=== PATIENT | male | born 1940 | race Caucasian/White ===

== ENCOUNTER 2018-02-17 17:28 | Inpatient (IN) | payer OTHER ==
[~2018-02-17] VITALS: Ht 172.7 cm; Wt 107.9 kg
--- NOTE | ~2018-02-17 | EKG ---
[address] [place] [address] ELECTROCARDIOGRAM REPORT Name: SANDRA KAY Room #: 217-P ADM IN M.R.#: [id number] Admission: 02/17/18 Attend Phys: Ricki Soto MD, Discharge: Date of : 38 Report #: [id number] THIS REPORT FOR: //name// [facility] ED Test Date: 2018-02-17 Test Time: 17:39:16 Pat Name: SANDRA KAY Department: Room: 217 Gender: M Radiation Therapy Technologist: NATACHA : 1940 Requested By: Jack Cage Order Number: [id number] MD: Radu Rendon Measurements Intervals [place] Rate: 115 P: WI: QRS: -41 QRSD: 108 T: 123 QT: 331 QTc: 458 Interpretive Statements Atrial fibrillation Inferior infarct, old Anterior infarct, old Compared to ECG 02/20/2013 07:37:45 Sinus rhythm no longer present Electronically Signed On 02-18-2018 9:48:55 CDT by Radu Rendon [email or web address] <ELECTRONICALLY SIGNED> By: Radu Rendon MD, [facility] 02/18/18 0948 1739 1739 Radu Rendon MD, [facility] /EPI
--- NOTE | ~2018-02-17 | D ---
[facility] [place] [address] [place] [address] DISCHARGE SUMMARY Name: SANDRA KAY Room #: 217-P [facility] IN M.R.#: [id number] Admission: 02/17/18 Attend Phys: Ricki Soto MD, Discharge: 02/20/18 Date of : 39 Report #: [id number] THIS REPORT FOR: //name// CC: Sam Ram MD DATE OF SERVICE: 02/20/2018 HOSPITAL COURSE: The patient is a 77-year-old male who was admitted with abdominal and chest pain. Subsequently, found to have what we perceived to be diverticulitis, colitis. He was borderline hypotensive, impending sepsis when he initially arrived. Seen by Infectious Disease and 3 different antibiotics were initiated on admission to the CCU, with negative cardiac enzymes. He is markedly improved with his antibiotic care. Stool culture and blood cultures were positive for gram-negative rods. Sensitivities are still pending this morning, but they should be obtained and then direct oral antibiotics. He will be discharged on acyclovir 400, multivitamins, glucosamine, vitamin D3, metoprolol 50 mg a day, irbesartan 75 mg a day, ____ 2 capsules b.i.d., simvastatin 40 and Eliquis 5 mg b.i.d. The antibiotics orally are pending the sensitivities, and I will add these on to an addendum. He has been treated with piperacillin or Zosyn. He has been on IV Zosyn and had received other antibiotics initially at the Emergency Room. DISCHARGE DIAGNOSES: 1. Diverticulitis/colitis, sepsis with gram-negative rods, positive blood cultures/bacteremia. 2. Coronary artery disease with prior limited anterior apical infarct clot without stent. 3. Mitral valve repair. 4. Hypertension. 5. Hypercholesterolemia. Followup is scheduled with myself and with Dr. Papo Marx, Infectious Disease. Thank you for asking to assist in the care of this patient. By: 0839 0911 Ricki Soto MD, FACC /nt
--- NOTE | ~2018-02-17 | H ---
[facility] [place] [address] [place] [address] HISTORY AND PHYSICAL Name: SANDRA KAY Room #: 217-P ADM IN M.R.#: [id number] Admission: 02/17/18 Attend Phys: Ricki Soto MD, Discharge: Date of : 39 Report #: [id number] THIS REPORT FOR: //name// CC: Sam Ram MD DATE OF SERVICE: 02/17/2018 HISTORY OF PRESENT ILLNESS: The patient is a 77-year-old male who is well known to myself. He has been stable from a cardiovascular perspective, has a history of permanent atrial fibrillation and a mitral valve ring repair in 2012 and mild coronary disease 2012 on a catheterization. In May 2016, he had an intravascular ultrasound of his IVC and external iliac and common iliac veins. No stents were placed. He has been anticoagulated with a novel agent, Eliquis 5 b.i.d., he also takes acyclovir, glucosamine, Tresiba, irbesartan 150 or 75 mg takes half of a pill daily, metoprolol 50, MultiVites, Zocor 40, vitamin D3. There was angioplasty and catheter removed of a clot at the distal LAD. This did not result in the stent. Mild circ and RCA disease. Dominant circumflex artery, mild inferior apical hypokinesis, but this is nearly resolved that was in February 2013. The patient has had progressive weakness, some swelling, chills and dyspnea. An episode last night, which resolved and then did not feel well all day and then had rigors and chilling tonight. Subsequently, brought to the Emergency Room, hemodynamically stable, mildly hypotensive with a mild lactate elevation, no significant white count, creatinine was 1.4, lactate was 2.7. H and H were 13 and 39. PAST MEDICAL AND SURGICAL HISTORY: Positive for that coronary artery disease with that spontaneous clot and extraction without stent, mitral valve ring repair, venous venogram, hypertension, hypercholesterolemia, prostate cancer, prostatectomy, TIA without recurrence, and the permanent atrial fibrillation, hernia repair in addition. 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 He had 3 sons alive and well. Moderate alcohol. No tobacco. FAMILY HISTORY: Mother had hypercholesterolemia and had an uncle who had a premature coronary artery disease. ALLERGIES: No known drug allergies. REVIEW OF SYSTEMS: Negative except for some insufficiency. PHYSICAL EXAMINATION: [facility] [address] [place] [address] HISTORY AND PHYSICAL Name: SANDRA KAY Room #: 217-P ADM IN M.R.#: [id number] Admission: 02/17/18 Attend Phys: Ricki Soto MD, Discharge: Date of : 39 Report #: [id number] GENERAL: He is alert. He is fairly comfortable right now. No further chilling. VITAL SIGNS: His initial temperature was 102, pulse is currently in the 60s-70s, was borderline tachycardic when he arrived, blood pressure 104/50. HEENT: Eyes reveal xanthelasmas. Pharynx is clear. NECK: Shows preserved upstrokes without JVD or bruits. LUNGS: Shows prolonged expiratory phase, diminished in the bases, left greater than right. Few crackles. CARDIOVASCULAR: Irregular, irregular, S1, S2. ABDOMEN: Soft. No HSM or abdominal bruit. EXTREMITIES: Reveal trace edema. Distal pulses diminished, but intact. NEUROLOGIC: Nonfocal. SKIN: Warm and dry without xanthoma or ulcer. There are some venous stasis insufficiency and dermatitis noted in the lower extremities. MUSCULOSKELETAL: Generalized arthritic changes. ASSESSMENT: 1. Apparent sepsis with borderline hypotension and lactate elevation (unclear etiology). 2. Coronary artery disease with remote left anterior descending clot, spontaneous clot formation with extraction. 3. Mild ischemic cardiomyopathy. 4. Mitral valve ring repair. 5. Permanent atrial fibrillation on anticoagulation with a novel agent. 6. History of prostatectomy for prostate cancer. 7. Hypercholesterolemia. RECOMMENDATIONS AND PLAN: Infectious Disease involved, IV antibiotics have been initiated. I am holding on blood pressure and I will continue with metoprolol 50 for rate, holding NIGEL, ARB and statin at this time. We will continue anticoagulation with the Eliquis. We are awaiting UA, blood and urine cultures, sputum culture, repeat chest x-ray. The patient in CCU and hemodynamically stable. Thank you for asking me to assist in the care of this patient. By: [id number] Ricki Soto MD, FACC /nt
--- NOTE | ~2018-02-17 | 2DMMODE ---
[facility] [address] [place] [address] 2 D/M-MODE ECHOCARDIOGRAM Name: SANDRA KAY Room #: 217-P ADM IN M.R.#: [id number] Admission: 02/17/18 Attend Phys: Ricki Soto, Discharge: Date of : 38 Date of Service: 02/19/18 1514 Report #: [id number] THIS REPORT FOR: //name// APPROVED REPORT Study performed: 02/19/2018 14:00:27 EXAM: Comprehensive 2D, Doppler, and color-flow Echocardiogram Patient Location: In-Patient Room #: 217 Status: routine BSA: 2.18 HR: 84 bpm BP: 103/69 mmHg Rhythm: Atrial Fibrillation Other Information Study Quality: Good Indications AFIB, HTN. Hx:Afib, CAD, MV repair, TIA. 2D Dimensions RVDd: 47.09 mm LVEF(%): 29.99 (>50%) IVSd: 10.80 (7-11mm) LVOT Diam: 21.63 (18-24mm) LVDd: 45.86 mm PWd: 9.86 (7-11mm) Ascending Ao: 33.10 (22-36mm) LVDs: 39.43 (25-40mm) Aortic Root: 37.12 mm Goetz's LVEF: 29.99 % Volumes Left Atrial Volume (Systole) Single Plane 4CH: 118.66 mL Single Plane 2CH: 110.20 mL LA ESV Index: 56.00 mL/m2 Aortic Valve AoV Peak Zeb.: 1.40 m/s AO Peak Gr.: 8.04 mmHg LVOT Max P.06 mmHg LVOT Max V: 0.87 m/s GILBERT Vmax: 2.29 cm2 Mitral Valve MV Decel. Time: 296.99 ms MV E Max Zeb.: 1.98 m/s [facility] [place] [address] 2 D/M-MODE ECHOCARDIOGRAM Name: SANDRA KAY TAMARA Room #: 217-P [facility] IN M.R.#: [id number] Admission: 02/17/18 Attend Phys: Ricki Soto, Discharge: Date of : 38 Date of Service: 02/19/18 1514 Report #: [id number] Pulmonary Valve PV Peak Zeb.: 0.98 m/s PV Peak Gr.: 3.88 mmHg Tricuspid Valve TR Peak Zeb.: 3.10 m/s TR Peak Gr.: 38.61 mmHg Left Ventricle The left ventricle is normal size. There is normal left ventricular wall thickness. Left ventricular systolic function is moderately decreased. LVEF is 35-40%. This study is not technically sufficient to allow evaluation of the LV diastolic function due to atrial fibrillation. Right Ventricle Right ventricle is dilated. Right ventricle is mildly hypokinetic. Atria Left atrium is severely dilated. Right atrium is moderately dilated. Aortic Valve Aortic valve is calcified. Trace aortic regurgitation. There is no aortic valvular stenosis. Mitral Valve History of mitral valve repair. Mild to moderate mitral stenosis with a mean pressure gradient of 6mmHg. Eccentric regurgitation jet, probably mild to moderate. Tricuspid Valve The tricuspid valve is normal in structure. Mild to moderate tricuspid regurgitation. Estimated PAP is 40mmHg plus the right atrial pressure. Pulmonic Valve The pulmonary valve is normal in structure. Trace pulmonic regurgitation. Great Vessels The aortic root is normal in size. The ascending aorta is normal in size. IVC is not well visualized. Pericardium [facility] [address] [place] [address] 2 D/M-MODE ECHOCARDIOGRAM Name: SANDRA KAY Room #: 217-P ADM IN M.R.#: [id number] Admission: 02/17/18 Attend Phys: Ricki Soto, Discharge: Date of : 38 Date of Service: 02/19/18 1514 Report #: [id number] There is no pericardial effusion. <Conclusion> The left ventricle is normal size. Left ventricular systolic function is moderately decreased. LVEF is 35-40%. This study is not technically sufficient to allow evaluation of the LV diastolic function due to atrial fibrillation. Right ventricle is dilated. Right ventricle is mildly hypokinetic. Left atrium is severely dilated. Right atrium is moderately dilated. Aortic valve is calcified. There is no aortic valvular stenosis. History of mitral valve repair. Mild to moderate mitral stenosis with a mean pressure gradient of 6mmHg. Eccentric regurgitation jet, probably mild to moderate. Mild to moderate tricuspid regurgitation. Estimated PAP is 40mmHg plus the right atrial pressure. The aortic root is normal in size. There is no pericardial effusion. <ELECTRONICALLY SIGNED> By: Ricki Soto MD, FACC 02/19/18 1514 1514 151 Ricki Soto MD, FACC /INF
--- NOTE | ~2018-02-17 | HC ---
[facility] [place] [address] [place] [address] CONSULTATION Name: SANDRA KAY Room #: 217-P ADM IN M.R.#: [id number] Admission: 02/17/18 Attend Phys: Ricki Soto MD, Discharge: Date of : 39 Report #: [id number] THIS REPORT FOR: //name// CC: Sam Ram MD DATE OF SERVICE: 02/18/2018 ATTENDING PHYSICIAN: Ricki Soto MD REASON FOR CONSULTATION: Fever. HISTORY OF PRESENT ILLNESS: The patient is a 77-year-old white man unwell since Saturday when he developed shaking chills and profound fatigue. Evaluated in the Emergency Room and diagnosed to be septic. He is admitted. I discussed with Emergency Room physician, recommended the patient receive Zosyn, Levaquin and vancomycin. Today, the patient is feeling better. His blood cultures showed gram-negative rods. His urinalysis is completely normal, but he reminds me he had previous episode of colonic diverticulitis treated by Dr. Ram with Flagyl and another antibiotic. The patient is feeling some better today. PAST MEDICAL HISTORY: Coronary artery disease, congestive heart failure. History of mitral valve ring repair. Hypertension Dyslipidemia. Prostate cancer. TIA. Permanent atrial fibrillation. Hernia repair. SOCIAL HISTORY: . 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 Three sons. Moderate alcohol. No tobacco. DRUG ALLERGIES: None listed. MEDICATIONS: The patient received vancomycin intravenously, Zosyn 4.5 grams IV single dose and Levaquin 750 mg IV single dose. He is also on treatment with metoprolol, acyclovir, apixaban and Lasix. REVIEW OF SYSTEMS: The patient specifically denies any abdominal pain, nausea, vomiting, diarrhea, genitourinary symptoms. He has chronic breathlessness and edema of lower extremities on account of congestive heart failure. PHYSICAL EXAMINATION: GENERAL: A well-developed, not toxic looking man. VITAL SIGNS: Temperature maximum 102.9, pulse 133 down to 79, respirations 28 down to 18, BP is 92/58 earlier today and 125/67 now. O2 saturation is 98% on nasal cannula 2 liters per minute. HEENMT: Head normocephalic, atraumatic. Pupils reactive. Mouth, repaired dental caries. [address] [address] CONSULTATION Name: SANDRA KAY Room #: 217-P ADM IN M.R.#: [id number] Admission: 02/17/18 Attend Phys: Ricki Soto MD, Discharge: Date of : 39 Report #: [id number] NECK: Supple, no thyromegaly. LUNGS: Crackles, particularly right lung base and decreased breath sounds on left. HEART: S1, S2. No gallop or murmur. ABDOMEN: Soft, no masses or megaly, no abnormal tenderness. GENITALIA AND RECTAL: Deferred. EXTREMITIES: Revealed trace pitting pretibial edema. LABORATORY DATA: Sodium 137, potassium 4.5, chloride 105, CO2 22, BUN 27, creatinine 1.4, glucose 130, calcium elevated at 10.2 mg/dL, albumin low at 3.3 g/dL, lactic acid was elevated yesterday 2.7 and repeat 11.3. NT-proBNP elevated at 3183. The CBC on admission revealed a WBC 7300, hemoglobin 13.6 g/dL, platelets 154,000. The white blood cell count differential revealed 94% segmented neutrophils. Repeat CBC today revealed white blood cell count has gone up to 13,200, hemoglobin 12.3 g/dL and platelets have dropped to 137,000. The urinalysis is completely negative. MICROBIOLOGY DATA: The rapid influenza A and B test negative. One out of two blood cultures revealed gram-negative rods. Identification and sensitivity is pending. ABGs ordered last night revealed pH , pCO2 decreased 29.8, pO2 141, bicarbonate 18.1. Lactate normal. These set of gases on oxygen supplementation 6 liters nasal cannula. RADIOLOGY EVALUATION: Chest x-ray revealed cardiomegaly, left-sided pleural effusion and some basilar infiltrates on right. ASSESSMENT: 1. Gram-negative jesica bacteremia, undetermined source. 2. History of colonic diverticulosis and recurrent diverticulitis. 3. Status post mitral valve repair and history of coronary artery disease, congestive heart failure and chronic atrial fibrillation, on oral anticoagulation. 4. Hypercalcemia. 5. Mild chronic kidney disease. 6. Hypoalbuminemia. 7. Thrombocytopenia. 8. History of prostate cancer. SUGGESTIONS: Recommend to discontinue Levaquin and vancomycin. Zosyn prolonged intravenous infusion, 3.45 grams IV every [address] scan of abdomen and pelvis. Repeat BMP today. Monitor calcium. [address] [address] CONSULTATION Name: SANDRA KAY Room #: 217-P ADM IN M.R.#: [id number] Admission: 02/17/18 Attend Phys: Ricki Soto MD, Discharge: Date of : 39 Report #: [id number] Soto, thank you for requesting my suggestions. <ELECTRONICALLY SIGNED> By: Papo Marx MD 02/18/18 1219 1012 1201 Papo Marx MD /nt
[~2018-02-17 17:28] MED LIST: ACYCLOVIR 400400 MG PO; ASPIRIN EC81 M1 PO; ASPIRIN325 PO; AVAPRO 150 MG150 MG PO; BENICAR20 MG PO; CAL-CITRATE PL1 EACH PO; CALCIUM CITRAT1 EA15 PO; CALCIUM CITRAT1 EAC9 PO; CVS FISH OIL 11 EAC3; FISH OIL 1,0001 EAC5 PO; GLUCOSAMINE &1 EACH PO; GLUCOSE4 GM; MULTI VITAMIN1 EACH PO; PLAVIX 75 MG TA75 M1 PO; SIMVASTATIN40 MG PO; TOPROL XL25 MG PO; VASCEPA1 GM PO; VERAPAMIL ER120 MG PO; VERAPAMIL SR 1120 M1 PO; VITAMIN D2000 UNIT PO; ZOCOR 20 MG TAB20 M1 PO
[2018-02-17 17:29] VITALS: BP 115/49
[2018-02-17 18:04] LABS: ABSOLUTE NEUTROPHILS 6.8 thou/uL (1.4-8.2); BASOPHILS 0.2 % (0.0-2.0); EOSINOPHILS 0.3 % (0.0-3.0); HEMATOCRIT 39.5 % (42.0-52.0); HEMOGLOBIN 13.6 gm/dL (14.0-18.0); LYMPHOCYTES 4.4 % (24.0-44.0); MCH 32.6 pg (26.0-34.0); MCHC 34.4 g/dL (28.0-37.0); MCV 94.7 fL (80.0-100.0); PLATELET COUNT 154 thou/uL (150-400); POLYS 94.1 % (36.0-66.0); RBC 4.17 mil/uL (4.50-6.00); RDW 13.1 % (10.5-14.5); WBC 7.3 thou/uL (4.0-11.0)
[2018-02-17 18:05] LABS: CALCIUM 10.2 mg/dL (8.5-10.1); CREATININE 1.4 mg/dL (0.7-1.3); POTASSIUM 4.5 mmol/L (3.5-5.1)
[2018-02-17 18:12] LABS: ALBUMIN 3.3 g/dL (3.4-5.0); TOTAL BILIRUBIN 0.9 mg/dL (<0.1-1.0); TOTAL PROTEIN 6.9 g/dL (6.4-8.2)
[2018-02-17 20:15] VITALS: BP 114/55
[2018-02-17 21:12] VITALS: BP 102/43
[2018-02-17] MEDS ORDERED: ELIQUIS5 MG PO (21:59)
[2018-02-17 22:55] LABS: BE(vivo) -5.4 mmol/L (-2 to +3); HCO3 18.1 mmol/L (22.0-26.0); PCO2 29.8 mmHg (35.0-45.0); PO2 141.1 mmHg (80.0-100.0); pH 7.401 (7.360-7.450); sO2 98.8 % (92.0-98.0)
[2018-02-17 23:05] VITALS: BP 92/58
[2018-02-18 00:11] LABS: URINE BILIRUBIN NEGATIVE (Negative); URINE BLOOD NEGATIVE (Negative); URINE CLARITY CLEAR; URINE COLOR YELLOW; URINE GLUCOSE-RANDOM* NEGATIVE (Negative); URINE KETONES TRACE (Negative); URINE LEUKOCYTES NEGATIVE (Negative); URINE NITRITE NEGATIVE (Negative); URINE PROTEIN (DIPSTICK) NEGATIVE (Negative); URINE SPECIFIC GRAVITY 1.025 (1.005-1.035); URINE UROBILINOGEN 0.2 E.U./dl (0.2-1.0)
[2018-02-18 03:41] VITALS: BP 95/59
[2018-02-18 05:07] LABS: HEMATOCRIT 36.1 % (42.0-52.0); HEMOGLOBIN 12.3 gm/dL (14.0-18.0); MCH 32.6 pg (26.0-34.0); MCV 96.1 fL (80.0-100.0); RBC 3.76 mil/uL (4.50-6.00); RDW 12.8 % (10.5-14.5); WBC 13.2 thou/uL (4.0-11.0)
[2018-02-18 07:50] VITALS: BP 125/67
[2018-02-18 10:17] LABS: CALCIUM 9.1 mg/dL (8.5-10.1); CREATININE 1.2 mg/dL (0.7-1.3); MAGNESIUM 1.7 mg/dL (1.8-2.4); POTASSIUM 4.6 mmol/L (3.5-5.1)
[2018-02-18 11:15] VITALS: BP 99/51
[2018-02-18 15:45] VITALS: BP 98/52
[2018-02-18 20:30] VITALS: BP 101/56
[2018-02-19 05:10] VITALS: BP 118/69
[2018-02-19 08:00] VITALS: BP 124/73
[2018-02-19 12:00] VITALS: BP 103/69
[2018-02-19 16:00] VITALS: BP 119/70
[2018-02-19 19:45] VITALS: BP 102/65
[2018-02-20 04:45] VITALS: BP 115/77
[2018-02-20 07:29] VITALS: BP 119/80
[2018-02-20 10:42] VITALS: BP 119/80
[2018-02-20 11:10] VITALS: BP 110/57
[2018-02-20 13:30] VITALS: BP 119/80
[2018-02-21 00:10] LABS: ADENOVIRUS Negative (Negative); INFLUENZA A Negative (Negative); INFLUENZA B Negative (Negative); METAPNEUMOVIRUS Negative (Negative); PARAINFLUENZA 1 Negative (Negative); PARAINFLUENZA 2 Negative (Negative); PARAINFLUENZA 3 Negative (Negative); RHINOVIRUS Negative (Negative); RSV A Negative (Negative); RSV B Negative (Negative)
== END 2018-02-20 13:10 | disposition home or self-care (01) | DRG 871 ==
LOC: ER 17:28 → EROBS 18:37 → 2N 18:37 → ENTRNSPT 02-20 12:45 → EDTRNSPTSTS 02-20 12:52 → 2N 02-20 13:10
PROVIDERS: Emergency Medicine; Internal Medicine Cardiovascular Disease; Internal Medicine Infectious Disease
DX: A41.9 Sepsis, unspecified organism (principal); E43 Unspecified severe protein-calorie malnutrition; I13.0 Hypertensive heart and chronic kidney disease with heart failure and stage 1 through stage 4 chronic kidney disease, or unspecified chronic kidney disease; I25.5 Ischemic cardiomyopathy; I25.10 Atherosclerotic heart disease of native coronary artery without angina pectoris; E78.00 Pure hypercholesterolemia, unspecified; I50.9 Heart failure, unspecified; E78.5 Hyperlipidemia, unspecified; I48.2 Chronic atrial fibrillation; K57.90 Diverticulosis of intestine, part unspecified, without perforation or abscess without bleeding; E83.52 Hypercalcemia; N18.9 Chronic kidney disease, unspecified; D69.6 Thrombocytopenia, unspecified; I95.9 Hypotension, unspecified; Z82.49 Family history of ischemic heart disease and other diseases of the circulatory system; Z85.46 Personal history of malignant neoplasm of prostate; Z86.73 Personal history of transient ischemic attack (TIA), and cerebral infarction without residual deficits; Z79.01 Long term (current) use of anticoagulants; Z79.899 Other long term (current) drug therapy; Z28.21 Immunization not carried out because of patient refusal; Z68.36 Body mass index [BMI] 36.0-36.9, adult
CPT/HCPCS: 10194

== ENCOUNTER 2018-04-24 19:22 | Inpatient (IN) | payer OTHER ==
[~2018-04-24] VITALS: Ht 172.7 cm; Wt 100.1 kg
--- NOTE | ~2018-04-24 | EKG ---
[place] [address] [place] [address] ELECTROCARDIOGRAM REPORT Name: SADNRA KAY Room #: 214-P ADM IN M.R.#: [id number] Admission: 04/24/18 Attend Phys: Ricki Soto MD, Discharge: Date of : 39 Report #: [id number] THIS REPORT FOR: //name// [facility] ED Test Date: 2018-04-24 Test Time: 20:33:10 Pat Name: SANDRA KAY Department: Room: Gender: M Cylinder Batcher[facility] : 1940 Requested By: Jack Cage Order Number: [id number] MD: Radu Rendon Measurements Intervals [place] Rate: 94 P: [place]: QRS: -41 QRSD: 107 T: -12 QT: 365 QTc: 457 Interpretive Statements Atrial fibrillation Poor R wave progression Leftward axis inferior infarct, age indeterminate Compared to ECG 02/17/2018 17:39:16 No significant changes Electronically Signed On 04-25-2018 9:19:43 CDT by Radu Rendon [email or web address] <ELECTRONICALLY SIGNED> By: Radu Rendon MD, [facility] 04/25/18918 32 32 Radu Rendon MD, [facility] /EPI
--- NOTE | ~2018-04-24 | HC ---
[facility] [address] [place] [address] CONSULTATION Name: SANDRA KAY Room #: 214-P DIS IN M.R.#: [id number] Admission: 04/24/18 Attend Phys: Ricki Soto MD, Discharge: 04/27/18 Date of : 39 Report #: [id number] THIS REPORT FOR: //name// <ELECTRONICALLY SIGNED> By: Monico Olmstead MD, FACS 04/29/18812 1338 10 Monico Olmstead MD, FACS /nt
--- NOTE | ~2018-04-24 | HC ---
[facility] [address] [place] [address] CONSULTATION Name: SANDRA KAY Room #: 214-P [facility] IN M.R.#: [id number] Admission: 04/24/18 Attend Phys: Ricki Soto MD, Discharge: Date of : 39 Report #: [id number] THIS REPORT FOR: //name// CC: Sam Soto Papo Francisco J Ram MD DATE OF SERVICE: 04/25/2018 INFECTIOUS DISEASE CONSULTATION ATTENDING PHYSICIAN: Dr. Soto. REASON FOR CONSULTATION: Shaking chills and fevers. HISTORY OF PRESENT ILLNESS: The patient is a 77-year-old white man, recently discharged from [facility] after an acute septic event, consistent of E. coli bacteremia and abdominal pain compatible with acute diverticulitis. The patient was discharged on oral antibiotics. He visited with Dr. Phil Ram the Saturday post-discharge and again, he was given a prescription for Flagyl 500 t.i.d. and Cipro 500 b.i.d. for another 10 days. The patient did well until the date of admission. On the morning of the day of admission, the patient wakes up and some chores at home. At around 03:00 or 04:00 p.m., developed severe shaking chills and presented to the Emergency Room. It is said to have temperature graduated to 102.3 at home and 103 in the ER; no documentation for that. The patient underwent CT scan of the abdomen and pelvis that revealed extensive colonic diverticulosis. No obvious diverticulitis. The other finding was left groin possible adenopathy. The patient is given Zosyn. Today, the patient is feeling significantly better. He has never seen surgeon and we will make sure we get a surgical consultation at this time. PAST MEDICAL HISTORY: Coronary artery disease. Dyslipidemia. Hypertension. Mitral valve ring repair in 2006. TIA. Hernia repair. Previous myocardial infarction. Prostate cancer, status post prostatectomy. Chronic atrial fibrillation. MEDICATIONS: At home include acyclovir, calcium citrate, multivitamin, glucosamine chondroitin, metoprolol, irbesartan, simvastatin, apixaban, icosapent ethyl or Vascepa 2 capsules b.i.d. and cholecalciferol 2000 units daily. Here at the hospital, the patient is on Zosyn 3.375 grams IV every 6 hours. SOCIAL HISTORY: See H and P, old records. FAMILY HISTORY: See H and P, old records. [facility] [address] [place] [address] CONSULTATION Name: SANDRA KAY Room #: 214-P [facility] IN M.R.#: [id number] Admission: 04/24/18 Attend Phys: Ricki Soto MD, Discharge: Date of : 39 Report #: [id number] REVIEW OF SYSTEMS: As above and essentially noncontributory. I have mentioned to him he had chronic crackles on the right base. He has bilateral trace pretibial edema and he tells me this has been present all the time. PHYSICAL EXAMINATION: GENERAL: A well-developed, not-toxic looking man. VITAL SIGNS: Temperature 98.7 on the date of admission, pulse 94, respirations 14, BP 101/68 and O2 saturation 96% on room air. HEENT: Within range. NECK: Supple. No thyromegaly or lymphadenopathy. LYMPH NODES: There are no palpable supraclavicular, axillary or inguinal adenopathy. LUNGS: Crackles at right base more so than the left. HEART: S1, S2. No gallop. ABDOMEN: Soft, not tender. No palpable masses or megaly. EXTREMITIES: Trace pretibial edema. NEUROLOGIC: Grossly within normal limits. LABORATORY DATA: Reveals BUN 21, creatinine 1.3 and glucose 149. Albumin 3.7 g/dL. The C-reactive protein is 15.5. WBC on admission 14,800, hemoglobin 13.9 g/dL and platelets 184,000. Sed rate pending and procalcitonin pending. Urinalysis negative. RADIOLOGY EVALUATION: CT scan abdomen and pelvis revealed extensive colonic diverticula as well as a 2-cm nodule anterior to the right common femoral artery and vein, just lateral to the origin of the inferior epigastric artery. ASSESSMENT: 1. Fevers and chills in a patient with history of extensive colonic diverticula. 2. Possible chronic obstructive pulmonary disease. 3. Coronary artery disease and previous history of mitral valve ring repair. 4. Status post prostatectomy for prostate cancer. 5. Dyslipidemia. 6. Right groin questionable lymphadenopathy. SUGGESTIONS: Recommend obtaining ESR, CRP and procalcitonin. Zosyn 3.375 grams IV every [address] Monico Olmstead for possible segmental colonic resection once the acute event resolves. [address] [address] CONSULTATION Name: SANDRA KAY Room #: 214-P ADM IN M.R.#: [id number] Admission: 04/24/18 Attend Phys: Ricki Soto MD, Discharge: Date of : 39 Report #: [id number] Soto, thank you for requesting my suggestions in the care of your patient. <ELECTRONICALLY SIGNED> By: Papo Marx MD 04/26/18 0706 1004 1325 Papo Marx MD /nt
--- NOTE | ~2018-04-24 | HC ---
[facility] [address] [place] [address] CONSULTATION Name: SANDRA KAY Room #: 214-P [facility] IN M.R.#: [id number] Admission: 04/24/18 Attend Phys: Ricki Soto MD, Discharge: 04/27/18 Date of : 38 Report #: [id number] THIS REPORT FOR: //name// CC: Sam Soto [facility] DATE OF SERVICE: 04/25/2018 GENERAL SURGERY CONSULTATION REFERRING PROVIDER: Ricki Soto MD [facility] REASON FOR CONSULT: Abdominal pain. HISTORY OF PRESENT ILLNESS: The patient is a 77-year-old male who was recently discharged after sustaining sepsis with E. coli bacteremia and acute diverticulitis. The patient was sent home on oral antibiotics; however, was doing well at home after discharge until yesterday when he developed shaking chills with fevers to 103 degrees. The patient underwent repeat workup with a CT scan of the abdomen and pelvis, which revealed diverticulosis with no obvious ongoing diverticulitis. He was given Zosyn and admitted and I am asked to evaluate from a surgical standpoint. PAST MEDICAL HISTORY: Coronary artery disease, dyslipidemia, hypertension, mitral valve repair, TIA, prior hernia repair, prior SD, prostate cancer, status post prostatectomy, chronic atrial fibrillation. HOME MEDICATIONS: Include acyclovir, calcium citrate, multivitamin, glucosamine chondroitin, metoprolol, irbesartan, simvastatin, Eliquis, Vascepa, cholecalciferol, and has been initiated on Zosyn while hospitalized here. ALLERGIES: No known drug allergies. FAMILY HISTORY: Reviewed and noncontributory. SOCIAL HISTORY: The patient does not use tobacco or illicit drugs. He does drink 6 ounces of red wine weekly. REVIEW OF SYSTEMS: GENERAL: The patient denies any nocturnal fevers or chills prior. HEENT: No change in vision or change in hearing. NECK: No swelling or difficulty swallowing. HEART: No chest pain or palpitations. LUNGS: No cough or shortness of breath. ABDOMEN: No nausea, no vomiting. [facility] [address] [place] [address] CONSULTATION Name: SANDRA KAY Room #: 214-P [facility] IN M.R.#: [id number] Admission: 04/24/18 Attend Phys: Ricki Soto MD, Discharge: 04/27/18 Date of : 38 Report #: [id number] GENITOURINARY: No dysuria or hematuria. ENDOCRINE: No polyuria or polydipsia. HEMATOLOGIC: No history of bleeding or easy bruising. EXTREMITIES: No history of weakness or limited range of motion. NEUROLOGIC: No history of syncope or near syncopal episodes. SKIN AND INTEGUMENT: No history of abnormal lesions or moles. PSYCHIATRIC: No history of anxiety or depression. PHYSICAL EXAMINATION: VITAL SIGNS: Temperature 37.2, pulse 89, respirations 20, blood pressure 120/68. GENERAL: Alert, in no acute distress. HEENT: Normocephalic, atraumatic. Pupils equal, round, reactive to light. NECK: Supple, without lymphadenopathy. Trachea midline. HEART: Irregularly irregular. LUNGS: Decreased breath sounds at the bases bilaterally, otherwise clear to auscultation throughout the rest of his lung painter. ABDOMEN: Soft, nontender, nondistended. GENITOURINARY: Normal external male genitalia. EXTREMITIES: No clubbing, cyanosis or edema. NEUROLOGIC: Cranial nerves 2-12 are grossly intact. PSYCHIATRIC: Normal mood and affect. SKIN AND INTEGUMENT: No abnormal lesions or moles. LABORATORY AND X-RAY DATA: CBC shows white blood cell count of 14.5 thousand, hemoglobin 13.5, platelets 170,000. Creatinine 1.2. CRP minimally elevated at 15. Sed rate normal at 10. Procalcitonin is normal at 0.30. Lactic acid normal at 0.7. ASSESSMENT AND PLAN: A 77-year-old male, with multiple medical problems including atrial fibrillation, coronary artery disease, status post myocardial infarction, hypercholesterolemia and hypertension, who has had a prior hernia repair in the past and was recently admitted for bacteremia secondary to acute diverticulitis. The patient has been seen by Dr. Marx of the Infectious Disease Service and he has the patient on appropriate antibiotic therapy even in light of absent acute infectious process seen on CT scan. The patient does have a low level leukocytosis and recently resolved his acute infectious episode, so this is completely appropriate and I will defer antibiotic choices to Dr. Marx at this time. Currently, the patient has no abdominal pain and as such, I would recommend continuation of conservative care with slow advancement in his oral intake coupled with his antibiotic therapy and the patient will necessitate colonoscopy as an outpatient with plans to proceed for definitive surgical management in the form of a sigmoid colectomy thereafter. All the above was discussed with the patient in detail and he agrees to proceed as outlined. [facility] [address] [place] [address] CONSULTATION Name: SANDRA KAY Room #: 600-P DIS IN M.R.#: [id number] Admission: 04/24/18 Attend Phys: Ricki Soto MD, Discharge: 04/27/18 Date of : 39 Report #: [id number] I sincerely appreciate this consult and we will follow closely and leave any further recommendations in the patient's chart as appropriate. <ELECTRONICALLY SIGNED> By: Monico Olmstead MD, FACS 04/29/18 0813 [id number] Monico Olmstead MD, FACS /nt
--- NOTE | ~2018-04-24 | D ---
[facility] [place] [place] [address] DISCHARGE SUMMARY Name: SANDRA KAY Room #: 214-P [facility] IN M.R.#: [id number] Admission: 04/24/18 Attend Phys: Ricki Soto MD, Discharge: 04/27/18 Date of : 39 Report #: [id number] THIS REPORT FOR: //name// CC: Sam Ram MD [facility] COURSE: The patient is a 77-year-old male. He was admitted with fever, rigors, and chills. This was a similar admission, 2 months prior, was found to have extensive diverticulosis. Had been stable, had been following dietary recommendations. He was subsequently treated with IV antibiotics, seen by Infectious Disease and General Surgery. He is up and ambulating, doing well. No further discomfort. No fever. His procalcitonin was not elevated and sed rate and CRP were fairly normal. He has a history of mild ischemic cardiomyopathy at 40% range, biatrial enlargement with [id number] MR and mitral stenosis. Mitral valve ring repair, permanent atrial fibrillation. He will be discharged home on his medications. He is restarted on his anticoagulation on the novel agent, Eliquis 5 mg b.i.d. and will be discharged on Cipro and Flagyl per Infectious Disease orally. Dr. Olmstead has seen him from General Surgery. The plan will be to obtain a colonoscopy and then probable bowel resection due to this recurrent nature of this disease. The patient is in full agreement with this. He has been quite sick on both of these admissions, initially and has little warning until he develops with high fever and shaking chills. DISCHARGE DIAGNOSES: 1. Diverticulitis with underlying extensive diverticulosis. 2. History of mitral valve disease with mitral valve ring repair and svnz-ey-zhiiiodl mitral regurgitation and mitral stenosis. 3. Mild idiopathic and valvular ischemic cardiomyopathy. 4. History of coronary artery disease. 5. Hypertension. 6. Hypercholesterolemia. To clarify his coronary artery disease, there was an old limited apical infarct that was a clot without a stent placement, this was a couple of years prior. He will also restart his statin and acyclovir at 400 mg a day. He will call with any issues. He will follow up with General Surgery regarding colonoscopy and [address] [address] DISCHARGE SUMMARY Name: SANDRA KAY Room #: 214-P [facility] IN M.R.#: [id number] Admission: 04/24/18 Attend Phys: Ricki Soto MD, Discharge: 04/27/18 Date of : 39 Report #: [id number] then possible further recommendations regarding a bowel resection for this extensive diverticulosis. <ELECTRONICALLY SIGNED> By: Ricki Soto MD, [facility] 05/07/18 0737 [id number] [id number] Ricki Soto MD, FACC /nt
[~2018-04-24 19:22] MED LIST changes: +ELIQUIS5 MG PO
[2018-04-24 19:28] VITALS: BP 101/68
[2018-04-24 20:32] LABS: URINE BILIRUBIN NEGATIVE (Negative); URINE BLOOD NEGATIVE (Negative); URINE CLARITY CLEAR; URINE COLOR YELLOW; URINE GLUCOSE-RANDOM* NEGATIVE (Negative); URINE KETONES NEGATIVE (Negative); URINE LEUKOCYTES-REFLEX NEGATIVE (Negative); URINE NITRITE-REFLEX NEGATIVE (Negative); URINE PROTEIN (DIPSTICK) NEGATIVE (Negative); URINE SPECIFIC GRAVITY 1.025 (1.005-1.035); URINE UROBILINOGEN 0.2 E.U./dl (0.2-1.0)
[2018-04-24 20:33] LABS: BASOPHILS 0.3 % (0.0-2.0); EOSINOPHILS 0.2 % (0.0-3.0); HEMOGLOBIN 13.9 gm/dL (14.0-18.0); LYMPHOCYTES 4.3 % (24.0-44.0); MCH 32.2 pg (26.0-34.0); MCHC 33.9 g/dL (28.0-37.0); MCV 95.2 fL (80.0-100.0); MONOCYTES 7.2 % (1.0-8.0); PLATELET COUNT 184 thou/uL (150-400); RBC 4.31 mil/uL (4.50-6.00); RDW 13.2 % (10.5-14.5); WBC 14.8 thou/uL (4.0-11.0)
[2018-04-24 20:46] LABS: CALCIUM 10.3 mg/dL (8.5-10.1); CREATININE 1.3 mg/dL (0.7-1.3)
[2018-04-24 20:58] LABS: ALBUMIN 3.7 g/dL (3.4-5.0); TOTAL BILIRUBIN 0.4 mg/dL (<0.1-1.0); TOTAL PROTEIN 7.5 g/dL (6.4-8.2)
[2018-04-24 22:39] VITALS: BP 106/59
[2018-04-24 22:50] VITALS: BP 118/69
[2018-04-25 02:44] LABS: ABSOLUTE NEUTROPHILS 11.6 thou/uL (1.4-8.2); BASOPHILS 0.4 % (0.0-2.0); EOSINOPHILS 0.7 % (0.0-3.0); HEMOGLOBIN 13.5 gm/dL (14.0-18.0); LYMPHOCYTES 12.6 % (24.0-44.0); MCH 32.2 pg (26.0-34.0); MCHC 33.7 g/dL (28.0-37.0); MCV 95.6 fL (80.0-100.0); MONOCYTES 6.1 % (1.0-8.0); PLATELET COUNT 170 thou/uL (150-400); POLYS 80.2 % (36.0-66.0); RBC 4.18 mil/uL (4.50-6.00); RDW 13.1 % (10.5-14.5); WBC 14.5 thou/uL (4.0-11.0)
[2018-04-25 02:50] LABS: CREATININE 1.2 mg/dL (0.7-1.3); POTASSIUM 4.1 mmol/L (3.5-5.1)
[2018-04-25 03:27] VITALS: BP 120/68
[2018-04-25 08:00] VITALS: BP 111/65
[2018-04-25 12:00] VITALS: BP 107/62
[2018-04-25 16:00] VITALS: BP 104/65
[2018-04-25 19:49] VITALS: BP 121/61
[2018-04-26 04:00] VITALS: BP 105/66
[2018-04-26 07:44] VITALS: BP 123/76
[2018-04-26 11:58] VITALS: BP 108/63
[2018-04-26 12:57] LABS: HEMOGLOBIN 14.2 gm/dL (14.0-18.0); MCH 32.2 pg (26.0-34.0); MCHC 33.8 g/dL (28.0-37.0); MCV 95.5 fL (80.0-100.0); RBC 4.4 mil/uL (4.50-6.00); RDW 13.1 % (10.5-14.5); WBC 7.5 thou/uL (4.0-11.0)
[2018-04-27 03:56] VITALS: BP 117/87
[2018-04-27 07:15] VITALS: BP 107/62
[2018-04-27] MEDS ORDERED: FLAGYL500 MG PO (10:18)
[2018-04-27] MEDS ORDERED: CIPRO500 MG PO (10:19)
[2018-04-27 10:20] VITALS: BP 107/62
[2018-04-27 11:15] VITALS: BP 102/59
== END 2018-04-27 14:57 | disposition home or self-care (01) | DRG 871 ==
LOC: ER 19:22 → EROBS 21:48 → 2N 21:48
PROVIDERS: Emergency Medicine; Surgery
DX: A41.9 Sepsis, unspecified organism (principal); E43 Unspecified severe protein-calorie malnutrition; K57.30 Diverticulosis of large intestine without perforation or abscess without bleeding; I25.10 Atherosclerotic heart disease of native coronary artery without angina pectoris; I10 Essential (primary) hypertension; E78.00 Pure hypercholesterolemia, unspecified; I48.2 Chronic atrial fibrillation; R68.89 Other general symptoms and signs; E78.5 Hyperlipidemia, unspecified; I25.5 Ischemic cardiomyopathy; Z85.46 Personal history of malignant neoplasm of prostate; Z86.73 Personal history of transient ischemic attack (TIA), and cerebral infarction without residual deficits; I25.2 Old myocardial infarction; Z95.1 Presence of aortocoronary bypass graft
CPT/HCPCS: 10081

== ENCOUNTER → 2018-10-02 | Outpatient (CLI) | payer OTHER ==
[~2018-10-02] VITALS: Ht 172.7 cm; Wt 99.8 kg
[~2018-10-02] MED LIST changes: +AVAPRO75 MG PO; +CIPRO500 MG PO; +DEMADEX20 MG PO; +FLAGYL500 MG PO; +K-DUR 20 MEQ T20 MEQ PO; +LOPRESSOR50 PO
--- NOTE | ~2018-10-02 | P ---
[facility] [place] [place] [address] PROCEDURE REPORT Name: SANDRA KAY [id number] Admission: 10/02/18 Attend Phys: Deejay Martinez MD Discharge: Date of : 39 Report #: [id number] THIS REPORT FOR: //name// CC: Deejay Olmstead MD DATE OF SERVICE: 10/02/2018 BRIEF HISTORY: The patient is a 78-year-old male with recurrent bouts of diverticulitis with an anticipation of upcoming surgery for diverticular disease. Screening colonoscopy is advised before surgery. PREOPERATIVE DIAGNOSIS: Screening colonoscopy, average risk. POSTOPERATIVE DIAGNOSIS: Severe left-sided diverticulosis coli. MEDICATIONS: Deep sedation with propofol per anesthesia. SPECIMEN: None. ESTIMATED BLOOD LOSS: None. PROCEDURE: Incomplete colonoscopy to ascending colon. FINDINGS: Prior to propofol sedation, procedure of colonoscopy discussed with the patient as well as potential risks and its complications. He indicates he understands and desires to proceed. DESCRIPTION OF PROCEDURE: With the patient in left lateral decubitus position, digital examination was completed which revealed no abnormalities. Subsequently, the Olympus video colonoscope was introduced in the rectum, advanced under direct vision. The scope was advanced to the rectum and into the sigmoid colon. The patient did not have extensive diverticular disease with multiple large mouth diverticula. Also, the sigmoid colon was relatively fixed and there were a number of sharp angles and bends. However, we were only able to advance the scope to about the level of the proximal sigmoid colon, at which point the angulation was so tight, we could not advance the scope any further. There also appeared to be luminal narrowing as well, but not a definite stricture. That scope was withdrawn. Due to the sharp angulations, I was not sure a pediatric colonoscope would traverse this segment, so we used an upper endoscope. With the upper endoscope, we were able to carefully guide it through the sigmoid colon into the descending colon and well into the transverse colon. No obvious diverticular disease was seen in the transverse colon. We advanced the scope as far as possible, but due to looping could not reach the cecum. [facility] [address] [place] [address] PROCEDURE REPORT Name: SANDRA KAY Room #: REG CLI M..#: [id number] Admission: 10/02/18 Attend Phys: Deejay Martinez MD Discharge: Date of : 39 Report #: [id number] After several attempts, the procedure was abandoned. The scope was withdrawn. Since we were able to traverse the sigmoid colon and had a better feel for the lumen, we tried the procedure one more time with the pediatric colonoscope. Very carefully, we were able to advance this through the sigmoid colon into the transverse colon. We were able to obtain deeper insertion of the scope and I believe into the ascending colon as noted by the light in the right mid abdomen. However, due to looping, we could not reach the cecum. Therefore, the cecum and proximal portion of the ascending colon could not be examined today. After multiple attempts, the procedure was aborted and the scope was slowly withdrawn. The prep was good. The mucosa was within normal limits, normal vascular pattern, normal light reflex. There was mild diffuse dilation of the colon above the areas of diverticular disease. No mucosal abnormalities were seen. No polyps were seen. Again, in the descending colon and most notably in the sigmoid colon, there was extensive diverticular disease with sharp angulation and luminal narrowing, but not a definite stricture. No mass lesions were seen. The scope was withdrawn in the rectum and no abnormalities were seen. Upon retroflexion, no abnormalities were seen. Scope was withdrawn. The patient tolerated the procedure well. CONDITION OF THE PATIENT UPON DISCHARGE: Following procedure, the patient was drowsy and will be discharged home when fully ambulatory. INSTRUCTIONS TO THE PATIENT AND FAMILY AT THE TIME OF DISCHARGE: With great difficulty, we were able to reach the ascending colon. Within the regions examined, other than diverticular disease, no other abnormalities were seen. The patient will proceed with surgical intervention with Dr. Monico Olmstead. After he recovers from his segmental resection, he should return for a complete colonoscopy. <ELECTRONICALLY SIGNED> By: Deejay Martinez MD 10/04/18 1553 [id number] Deejay Martinez MD /nt
== END | disposition home or self-care (01) ==
LOC: GI 09:26
DX: K57.30 Diverticulosis of large intestine without perforation or abscess without bleeding (principal); E78.00 Pure hypercholesterolemia, unspecified; I25.10 Atherosclerotic heart disease of native coronary artery without angina pectoris; I25.2 Old myocardial infarction; I48.2 Chronic atrial fibrillation; Z86.73 Personal history of transient ischemic attack (TIA), and cerebral infarction without residual deficits; Z87.891 Personal history of nicotine dependence; Z85.828 Personal history of other malignant neoplasm of skin; Z85.46 Personal history of malignant neoplasm of prostate; Z98.890 Other specified postprocedural states; Z79.899 Other long term (current) drug therapy; Z79.01 Long term (current) use of anticoagulants
CPT/HCPCS: 62110; 62900

== ENCOUNTER 2018-11-03 05:31 | Inpatient (IN) | payer OTHER ==
[~2018-11-03] VITALS: Ht 172.7 cm; Wt 97.5 kg
[~2018-11-03 05:31] MED LIST changes: -LOPRESSOR50 PO
[2018-11-03 07:16] LABS: HEMATOCRIT 40.5 % (42.0-52.0); HEMOGLOBIN 13.9 gm/dL (14.0-18.0)
[2018-11-03 07:26] LABS: CALCIUM 9.9 mg/dL (8.5-10.1); CREATININE 1.4 mg/dL (0.7-1.3); POTASSIUM 4.3 mmol/L (3.5-5.1)
[2018-11-03 07:51] VITALS: BP 92/57
[2018-11-03 13:14] VITALS: BP 118/77
--- NOTE | 2018-11-03 13:34 | NUR ---
ASSESMENT COMPLETED. VSS. A/O. PAIN PARTIALLY RELIEVED BY MEDS PER PT REPORT. POST OP DRESSING CDI- PREVENA WOUND VAC INTACT. EDWARD. KINJAL TO PETER. WILL CONT. TO MONITOR.
[2018-11-03 16:14] VITALS: BP 131/63
--- NOTE | 2018-11-03 17:16 | NUR ---
PT MORE AWAKE THIS EVENING. TOLERATING DIET. WILL CONT. TO MONITOR.
[2018-11-03 19:42] VITALS: BP 135/66
--- NOTE | 2018-11-04 00:43 | NUR ---
S/P OPEN SIGMOID COLON SURGERY.MIDLINE DRSG WITH PREVENA WOUND VAC INTACT. BOWEL SOUNDS PRESENT.PT TOLERATING FULL LIQUIDS. AFEBRILE. ON /NC, USING THE I/S WHILE AWAKE. SCDS IN PLACE. [place]TON WITH GOOD U/O. PT CONTINUES ON IVF AND IV ABTS. PT DENIES PAIN . HE HAS BEEN ABLE TO SIT UP BY THE SIDE OF THE BED.. RESTING WELL AT THIS TIME. NO FURTHER CONCERNS.
[2018-11-04 03:28] VITALS: BP 112/66
[2018-11-04 06:08] LABS: HEMATOCRIT 34.8 % (42.0-52.0); MCHC 33.5 g/dL (28.0-37.0); MCV 95.5 fL (80.0-100.0); RBC 3.65 mil/uL (4.50-6.00); WBC 17.4 thou/uL (4.0-11.0)
[2018-11-04 06:14] LABS: HEMOGLOBIN 11.7 gm/dL (14.0-18.0)
[2018-11-04 06:25] LABS: CALCIUM 9.2 mg/dL (8.5-10.1); POTASSIUM 4.8 mmol/L (3.5-5.1)
[2018-11-04 08:26] VITALS: BP 105/60
--- NOTE | 2018-11-04 13:23 | NUR ---
ASSESSMENT-PT LIVES AT HOME WITH HIS WHO IS 11 YRS YOUNGER AND IN [facility]. BOTH DRIVE. THEIR DTR DOMINIC LIVES WITH THEM BUT SHE DOES NOT DRIVE. PT WALKS ON HER OWN AND DOES HER OWN ADLS. PT HAS NOT HAD ANY HH IN THE PAST. PT HAS BEEN TO CARDIAC REHAB TWICE. HE HAS A RAISED TOILET THAT HE CAN USE. THY HAVE 2 SONS IN THE AREA AND ANOTHER SON IN [place]. PT DENIES ANY DC NEEDS AT THIS TIME. FOLLOWING TO ASSIST WITH DC PLANNING.
[2018-11-04 16:13] VITALS: BP 97/52
--- NOTE | 2018-11-04 18:45 | NUR ---
REPORT GIVEN FROM THE FLOOR NURSE. PATIENT TRANSFERRED FROM ROOM #421 TO ROOM #222. PATIENT SETTLED IN CHAIR. CALL LIGHT WITHIN REACH. PATIENT WILL CALL OUT APPROPRIATELY.
[2018-11-04 19:35] VITALS: BP 102/62
--- NOTE | 2018-11-04 20:07 | NUR ---
ASSUMED CARE AT 0700. PT A&OX4. PT ON ROOM AIR. PT GETS UP WITH 1 ASSIST AND A GAIT BELT. PT THIS MORNING REFUSED TO WALK BUT STATED HE WOULD SIT UP ON THE SIDE OF THE BED. PT SAT UP WITH OUT AND DIFFICULTY. PT THEN WANTED TO SIT IN THE RECLINER. PT GOT UP X1 ASSIST AND GAIT BELT AND WALKED TO RECLINER IN ROOM. PT IN AFTERNOON STATED THAT HE WOULD NOW WALK. PT WALKED WITH RN AROUND WHOLE UNIT X2 LAPS. PT STATED THAT HE HAD MILD PAIN WITH AMBULATION BUT THAT IT FELT GOOD TO STRETCH HIS LEGS. PT AGREED TO WALK AFTER DINNER. PT ONLY AGREED TO TAKE A PAIN PILL THIS AM. PT STATES HE HAS HIGH PAIN TOLERANCE AND WOULD LET NURSE KNOW IF PAIN PILLS WERE NEEDED. PT REMAINED ON FULL LIQUID DIET PER HIS CHOICE. PT STATES THAT HE LIKED WHAT THEY WERE SERVING. PT TOLERATED DIET WITHOUT PROBLEM. PT TRANSFERRED AFTER [facility] TO [facility]. REPORT CALLED AND PT TRANSFERRED.
--- NOTE | 2018-11-05 04:13 | NUR ---
Pt A/OX4,up with SBA/IV pole in room pt wants to be independent with walking. Educated on fall safety r/t hogan/IV pole in place pt verbalized understanding and agreeable to call for help when getting up. Didn't ambulate on the hallway b4 HS because of abd pain,medicated with 1 [place] with relief reported. Prevena dsg in place on midline incision on abd C/D/I. Lap sites intact with fred. Had a BM at bedtime. IVF infusing via Left wrist IV no problems. SCD's applied when in bed. Resting quietly eyes closed with no distress noted. Will continue to monitor pt.
--- NOTE | 2018-11-05 06:10 | NUR ---
Hogan discontinued without any problems. Pt A/OX4,pleasant mood. Denies need for pain meds at this time. Call light/personal items placed within reach. Educated pt on post hogan removal protocol, verbalizes understanding. Will monitor for pvr.
[2018-11-05 07:07] LABS: ABSOLUTE NEUTROPHILS 10.4 thou/uL (1.4-8.2); BASOPHILS 0.2 % (0.0-2.0); EOSINOPHILS 0.5 % (0.0-3.0); HEMATOCRIT 34.5 % (42.0-52.0); HEMOGLOBIN 11.9 gm/dL (14.0-18.0); MCH 32.9 pg (26.0-34.0); MCHC 34.4 g/dL (28.0-37.0); MCV 95.6 fL (80.0-100.0); MONOCYTES 9.1 % (1.0-8.0); PLATELET COUNT 144 thou/uL (150-400); POLYS 73.2 % (36.0-66.0); RBC 3.61 mil/uL (4.50-6.00); RDW 13.3 % (10.5-14.5); WBC 14.2 thou/uL (4.0-11.0)
[2018-11-05 07:21] LABS: CALCIUM 9.9 mg/dL (8.5-10.1); CREATININE 0.9 mg/dL (0.7-1.3); POTASSIUM 4.3 mmol/L (3.5-5.1)
[2018-11-05 07:40] VITALS: BP 133/793
--- NOTE | 2018-11-05 11:32 | NUR ---
ASSUMED CARE OF PATIENT THIS MORNING. PATIENT IS ALERT AND ORIENTED X 4. PATIENT IS UP WITH ASSIST WHEN AMBULATING WITH A GAIT BELT. PATIENT RATED PAIN 3/10, AND DID NO WANT ANYTHING FOR PAIN. HE FELT LIKE THE PAIN WAS MANAGEABLE. HE HAS THREE LAPROPSCOPIC SITES TWO MIDLINE AND ONE TO THE SIDE. HE HAS A PREVENA WOUND VAC IN PLACE MIDLINE, WHICH IS CLEAN, DRY AND INTACT. HE CURRENTLY RECEIVING IV FLUIDS. HE IS ON A FULL LIQUID DIET, WILL CONTACT THE PHYSICIAN TO SEE ABOUT ADVANCING THE PATIENTS DIET. PATIENT GETS TORSEMIDE TO HELP WITH HIS FLUID RETENTION. PATIENT WEARS SCD'S WHILE IN BED. HE WAS ASSESSED THIS MORNING HE HAS IRREGULAR HEART BEAT DUE TO CHRONIC AFIB. HE HAS SWELLING BILATERALLY IN HIS LEGS. ACTIVE BOWEL SOUNDS, BUT ABDOMEN IS SOFT AND DISTENDED. PATIENT IS CURRENTLY SITTING IN RECLINER, WITH CALL LIG WITHIN REACH. HE CALLS OUT APPROPRIATELY.
--- NOTE | 2018-11-05 14:43 | NUR ---
SW reviewed chart and spoke with nursing and spoke with nursing and attending physician. Pt was [facility] to [facility] from and is progressing towards goals for discharge. Plan is for pt to d/c home when medically stable. SW is following to assist as needed with discharge planning.
--- NOTE | 2018-11-05 14:51 | NUR ---
PATIENT'S FLUIDS WERE DISCHARGED BY NURSE PRACTITIONER MARY JANE TANG. PATIENT'S DIET ADVANCED TO SOFT/FIBER RESTRICTED DIET. PATIENT OK TO DISCHARGE TOMORROW BUT PATIENT WANTED TO WAIT UNTIL SATURDAY WHICH WAS OK WITH THE NURSE PRACTITIONER.
[2018-11-05 19:34] VITALS: BP 113/72
--- NOTE | 2018-11-06 02:17 | NUR ---
Pt A/OX4,pleasant mood. Up ad wenceslao in room, ambulated on the hallway x3 with nurse before HS without any problems. VSS.Voiding large amnts of urine and reports having some mucousy small BM,passing flatus. No N/V.C/o pain to abd @ 6/10 medicated with [place] with relief reported. Prevena wound vac patent,has 2 lap sites with fred in place. Has a PIV on left wrist saline locked. Resting quietly at this time with no distress noted, will continue to monitor pt.
[2018-11-06 07:16] LABS: ABSOLUTE NEUTROPHILS 8.2 thou/uL (1.4-8.2); BASOPHILS 0.4 % (0.0-2.0); EOSINOPHILS 0.7 % (0.0-3.0); HEMATOCRIT 37.1 % (42.0-52.0); HEMOGLOBIN 12.5 gm/dL (14.0-18.0); LYMPHOCYTES 16.9 % (24.0-44.0); MCH 32.2 pg (26.0-34.0); MCHC 33.6 g/dL (28.0-37.0); MCV 95.7 fL (80.0-100.0); MONOCYTES 9.6 % (1.0-8.0); PLATELET COUNT 169 thou/uL (150-400); POLYS 72.4 % (36.0-66.0); RBC 3.88 mil/uL (4.50-6.00); RDW 13.2 % (10.5-14.5); WBC 11.3 thou/uL (4.0-11.0)
[2018-11-06 07:23] LABS: CALCIUM 10.4 mg/dL (8.5-10.1); POTASSIUM 4.3 mmol/L (3.5-5.1)
[2018-11-06 08:35] VITALS: BP 142/86
--- NOTE | 2018-11-06 09:56 | NUR ---
ASSUMED CARE OF PATIENT THIS MORNING. PATIENT IS ALERT AND ORIENTED X 4. HE IS UP AMBULATORY. HE COMPLAINS OF PAIN 3/10. PATIENT DOESN'T WANT ANYTHING FOR PAIN. PATIENT WILL BE DISCHARGED TOMORROW. HE WAS ASSESSED THIS MORNING, PATIENT HAS CHRONIC AFIB, IRREGULAR HEART RHYTHM. HE HAS EDEMA BILATERALLY IN HIS LOWER EXTREMITIES. PATIENT'S LAST BOWEL MOVEMENT WAS YESTERDAY MORNING, HE HAS ACTIVE BOWEL SOUNDS. PATIENT HAS A PREVENA WOUND VAC AND THE DRESSING IS CLEAN, DRY, AND INTACT. HE WEARS SCD'S WHILE IN BED. HE IS CURRENTLY SITTING UP IN THE CHAIR WITH HIS CALL LIGHT IN REACH.
--- NOTE | 2018-11-06 11:10 | PATH ---
[facility] [address] [place] [address] PATHOLOGY RPT PROCEDURE Name: THIERNO KAY Room #: 222-P ADM IN M.R.#: [id number] Admission: 11/03/18 Date of : 38 Discharge: Report #: [id number] Path Case #: [id number] [facility] Accession Number: [id number] . 01 Material submitted: . SIGMOID COLON . 01 Clinical history: . Diverticulitis . 02 Diagnosis: Large intestine, sigmoid colon, colectomy: - Acute and chronic diverticulitis in a background of diverticulosis. - Margins of resection viable and unremarkable. - Negative for dysplasia or malignancy. (IUV:11/05/2018) QTP/11/05/2018 . 02 Electronically signed: . Allison Prather MD, Pathologist NPI- [id number] . 01 Gross description: . The specimen is received in formalin, labeled "Thierno Kay sigmoid colon" and consists of an unoriented segment of large intestine measuring 27.0 cm in length and ranging from 3.0 cm to 3.8 cm in diameter with pericolic fat lining the entire specimen measuring up to 3.3 cm. Both margins are closed with fred. The serosa is pink-purple, dusky with adhesions. Opening reveals a pink-plascencia mucosa with no polyps or mass lesions. Further sectioning reveals a thickened/fibrous wall and multiple diverticula which extend into the pericolic fat ranging from 0.2 cm to 1.3 cm. No perforations are grossly identified and shipping services sales representative sections are submitted as follows: . A1: Both margins A2-A4: Diverticula (SDY; 11/04/2018) SYU/SYU . 02 Pathologist provided ICD-10: K57.32, K57.30 . 02 CPT . 557895 Specimen Comment: A courtesy copy of this report has been sent to Specimen Comment: [phone], . Specimen Comment: Report sent to / [place] [address] PATHOLOGY RPT PROCEDURE Name: THIERNO KAY Room #: 222-P [facility] IN M.R.#: [id number] Admission: 11/03/18 Date of : 38 Discharge: Report #: [id number] Path Case #: [id number] Specimen Comment: A duplicate report has been generated due to demographic updates. Performed at: [address] [facility] [address], [place], [place] [id number] MD Gabe Bhakta MD Phone: [phone] Performed at: [address] [facility] [id number] MD Allison Prather MD Phone: [phone]
--- NOTE | 2018-11-06 12:14 | NUR ---
SW reviewed chart and spoke with nursing. Pt is progressing towards goals for discharge. Discharge home is anticipated for tomorrow. SW is following to assist as needed with discharge planning.
[2018-11-06 20:21] VITALS: BP 108/73
--- NOTE | 2018-11-07 03:16 | NUR ---
Pt A/OX4,up ad wenceslao without problems. C/o abd pain LOP 6/10 medicated with [place] X2 so far with relief reported. No N/V,reports had 2 small soft BM's and passing gas,peeing without difficulties. Prevena wound vac intact, has 2 lap sites with fred in place. Pt's IV was leaking,discontinued per request didn't want to be re-inserted unless needed will notify MD in am. Resting quietly on the chair eyes closed at this time. Has edema on BLE but unable to elevate feet while seated d/t abd pain. Call light/personal items placed within reach.
[2018-11-07 08:10] VITALS: BP 109/69
[2018-11-07 10:46] VITALS: BP 109/69
[2018-11-07] MEDS ORDERED: HYDROCODON-ACE1 EAC7 PO ×2 (10:50)
--- NOTE | 2018-11-07 10:50 | NUR ---
DISCHARGE NOTE: SW reviewed chart and spoke with nursing. Discharge home is anticipated for today. SW met with pt at bedside to discuss discharge plan. Pt states [facility] has already contacted him to assist with HH services at time of discharge. Pt is agreeable with plan for HH services. SW verified pt's home address and contact info. Pt's PCP is Dr. Phil Ram. Clinical info and final discharge orders/summary to be faxed to [facility] when available. Contact info for [facility] placed in discharge summary. Pt's family will provide transportation home. No further SW needs identified at this time, but is available to assist should needs arise.
--- NOTE | 2018-11-07 15:07 | NUR ---
DISCHARGE ORDERS RECEIVED. PATIENT DISCHARING TO HOME WITH [facility]. DISCHARGE ORDERS, DISCHARGE SUMMARY, POST OPERATIVE REPORT AND FACESHEET FAXED TO LEILANI, JEANETTE LIAISON, VERIFIED RECEIVED. SPOKE WITH LEIL[facility], SHE WILL FACILITATE PATIENTS HOME HEALTH NEEDS. UNIT CM/CLARA AWARE.
--- NOTE | 2018-12-16 15:20 | O ---
[facility] [place] [address] [place] [address] OPERATIVE REPORT Name: SANDRA KAY Room #: 222-P [facility] IN M.R.#: [id number] Admission: 11/03/18 Attend Phys: Monico Olmstead MD, Discharge: 11/07/18 Date of : 38 Report #: [id number] THIS REPORT FOR: //name// CC: Phil Olmstead DATE OF SERVICE: 11/03/2018 PREOPERATIVE DIAGNOSIS: Longstanding multiple bouts of sigmoid diverticulitis. POSTOPERATIVE DIAGNOSES: 1. Longstanding multiple bouts of sigmoid diverticulitis. 2. Pelvic adhesions. PROCEDURES PERFORMED: 1. Laparoscopic converted to open sigmoid resection with low coloproctostomy. 2. Laparoscopic mobilization of the splenic flexure. 3. Laparoscopic and open lysis of adhesions. SURGEON: Monico Olmstead MD [employer] OPERATOR: JUSTIN Iverson. ANESTHESIA: General endotracheal anesthesia. ESTIMATED BLOOD LOSS: Minimal (less than 20 mL). COMPLICATIONS: None appreciated. SPECIMENS: Sigmoid colon to pathology. INDICATIONS: The patient is a 78-year-old male who has battled multiple bouts of sigmoid diverticulitis over the past and after recovering from his most recent bout has elected for sigmoid resection. Intraoperative findings of marked intra-abdominal adhesions in the pelvis from prior prostatectomy as well as a thick chronically inflamed sigmoid colon was encountered that required conversion to an open procedure. DESCRIPTION OF PROCEDURE: After explaining the risks, benefits and alternatives of the procedure with the patient in detail in the preoperative holding area and obtaining written consent, the patient was brought to the operating room and placed supine on the operating room table. After conducting a thorough timeout procedure verifying correct patient and procedure, the patient was given general endotracheal anesthesia. Once adequate anesthesia was obtained, his SCDs were hooked up to pneumatic compression device. He was given a preoperative dose of antibiotics in line with the SCIP protocol. The patient's abdomen was now [facility] [address] [place] [address] OPERATIVE REPORT Name: SADNRA KAY Room #: 222-P [facility] IN .R.#: [id number] Admission: 11/03/18 Attend Phys: Monico Olmstead MD, Discharge: 11/07/18 Date of : 38 Report #: [id number] prepped and draped in standard surgical sterile fashion after positioning him in the low lithotomy position with his legs in the Yellofin stirrups. 5 mL of 0.5% Marcaine with epinephrine were used to anesthetize the skin 2 cm cephalad to the umbilicus and 2 cm to the patient's right. A #15 bladed scalpel was used to create a small skin henok at this location. A 5 mm Visiport was placed over 0 degree 5 mm laparoscope and was introduced through this incision site. Once intra-abdominal placement was verified visually, the obturator for the trocar and laparoscope were both removed and the abdomen was insufflated to 15 mmHg using carbon dioxide gas. The laparoscope was changed to a 5-mm 30-degree laparoscope, which was reintroduced through this trocar. The entire abdomen was evaluated to ensure no injury upon entry and no pathology outside of the sigmoid colon in question. We immediately identified a thickened and chronically inflamed sigmoid colon with pelvic adhesions. I now placed an additional 5 mm port, 2 cm cephalad to the umbilicus and 4 cm to the patient's left and a 12 mm port in the right lower quadrant. Both additional trocars were placed under direct vision after anesthetizing the skin at each location with 5 mL of 0.5% Marcaine with epinephrine and created appropriately sized skin nicks using #15 bladed scalpel. The patient was now placed in Trendelenburg position with left side elevated and I proceeded to begin to take down some pelvic adhesions using the articulating EnSeal device. These adhesions were taken down ensuring that we stayed well away from the bladder and unfortunately the patient's sigmoid colon was so markedly and chronically inflamed and thickened, I was unable to grasp it in anyway with the laparoscopic graspers. It was therefore unable to be manipulated laparoscopically even after 30-45 minutes of attempting. As such, the decision was made to convert to an open procedure. Prior to opening, I closed the 12 mm fascial incision using 0 PDS suture on a Warren-Liat suture passer device and tied this down under direct vision. I now proceeded to create a longitudinal midline incision following his prior incision site from his prostatectomy from the umbilicus down. Electrocautery was used to carry this down through skin and subcutaneous tissues to ensure hemostasis. Once the entire fascial opening had been created I proceeded to mobilize the colon along the white line of Toldt. Care was taken to identify the left ureter, which was identified, preserved and uninjured throughout. Once I had taken down the white line of Toldt, I dissected low in the pelvis. I was able to elevate the thickened and chronically inflamed sigmoid colon into the midabdomen. Unfortunately, the inflammation carried to the superior rectum and as such I scored along the perirectal borders on both the right and left lateral sides in order to create a window in the mesorectum with blunt dissection using my index finger. I then used the contour stapler with a green load to transect the mid rectum low in the pelvis. The sigmoid colon and superior rectum were then elevated. The mesorectum and the mesocolon were then taken down using X1 EnSeal device and carried as far cephalad as necessary to obtain healthy descending colon. I then transected the colon at this location using the auto pursestring suture device and passed the specimen off the field. I then sized the descending colon as well as the rectal stump showing the appropriate size stapler to be a 29 EEA. The appropriate size anvil was then placed in the open [facility] [address] [place] [address] OPERATIVE REPORT Name: SANDRA KAY Room #: 222-P [facility] IN M.R.#: [id number] Admission: 11/03/18 Attend Phys: Monico Olmstead MD, Discharge: 11/07/18 Date of : 38 Report #: [id number] end of the colon. The pursestring suture was then tied down from the auto pursestring suture device. There was no excess tissue needed to be removed at the end of the sample. The colon was placed back in the abdomen and attempts at mating it to the remaining rectum showed that it was under tension. As such, I then at this juncture I closed the lower midline fascial wound using looped #1 PDS suture in standard running fashion. The abdomen was gently reinsufflated at this juncture and the laparoscope was placed back in the remaining trocars. I now mobilized the splenic flexure laparoscopically using the articulating EnSeal device to allow significant additional length on the descending colon. The EEA stapler was then placed up the rectal stump, the spike was delivered through the end of the staple line and it was easily mated to the anvil with no tension whatsoever placed on the anastomosis. The stapler was fired creating the anastomosis, which showed no twisting and excellent orientation. We had two complete beefy anastomotic donuts. I now performed a leak test using normal saline to instill into the pelvis and using the rigid proctoscope to insufflate showing no evidence of bubbling thereby signifying a negative leak test. The normal saline was suctioned out of the pelvis, which ran clear throughout. One final evaluation of the intra-abdominal domain showed no further evidence of pathology. The abdomen was fully desufflated. All remaining trocars were removed under direct vision. A midline wound was closed with fred as were the remaining laparoscopic port sites. A Prevena topical wound VAC device was placed overlying the midline fascial wound. At the end of the procedure, all instrument, needle and sponge counts were correct. The patient tolerated the procedure without incident, was awakened in the operating room and transitioned to the recovery room in stable condition with no apparent complications. <ELECTRONICALLY SIGNED> By: Monico Olmstead MD, FACS 12/16/18 1520 0729 [id number] Monico Olmstead MD, FACS /nt
== END 2018-11-07 18:09 | disposition home health service (06) | DRG 331 ==
LOC: TBA 05:31 → 4E 05:31 → PRE 10:11 → 4E 13:14 → SICU 11-04 18:28 → ENTRNSPT 11-07 16:51 → SICU 11-07 18:09
PROVIDERS: ADMIT Surgery
DX: K57.32 Diverticulitis of large intestine without perforation or abscess without bleeding (principal); Z79.899 Other long term (current) drug therapy
CPT/HCPCS: 10783; 15002; 50010; 50093; 50101; 50221; 50249; 50290; 50386; 50455; 50525; 50555; 50740; 50804; 50953; 51398; 51412; 51489; 52265; 53307; 54022; 54118; 56462; 56525; 56526; 56527; 56530; 56753; 57092; 62110; 62900; 65020; 65040; 70005

== ENCOUNTER 2018-11-08 20:53 | Inpatient (IN) | payer OTHER ==
[~2018-11-08] VITALS: Ht 172.7 cm; Wt 100.2 kg
[~2018-11-08 20:53] MED LIST changes: +HYDROCODON-ACE1 EAC7 PO
[2018-11-08 20:55] VITALS: BP 104/86
[2018-11-08 21:30] LABS: ABSOLUTE NEUTROPHILS 15.6 thou/uL (1.4-8.2); BASOPHILS 0.2 % (0.0-2.0); HEMATOCRIT 38.1 % (42.0-52.0); HEMOGLOBIN 13.1 gm/dL (14.0-18.0); LYMPHOCYTES 4.4 % (24.0-44.0); MCH 32.6 pg (26.0-34.0); MCHC 34.4 g/dL (28.0-37.0); MCV 94.6 fL (80.0-100.0); MONOCYTES 6.1 % (1.0-8.0); PLATELET COUNT 234 thou/uL (150-400); POLYS 89.3 % (36.0-66.0); RBC 4.03 mil/uL (4.50-6.00); RDW 12.8 % (10.5-14.5); WBC 17.4 thou/uL (4.0-11.0)
[2018-11-08 21:37] LABS: CALCIUM 11.5 mg/dL (8.5-10.1); CREATININE 1.7 mg/dL (0.7-1.3); POTASSIUM 4.2 mmol/L (3.5-5.1)
[2018-11-08 21:43] LABS: ALBUMIN 3.1 g/dL (3.4-5.0); TOTAL BILIRUBIN 1.5 mg/dL (<0.1-1.0)
[2018-11-09] VITALS (8 sets, daily range): BP systolic 109–135; BP diastolic 61–72
[2018-11-09 04:54] LABS: CALCIUM 10.5 mg/dL (8.5-10.1); CREATININE 1.3 mg/dL (0.7-1.3); POTASSIUM 4.2 mmol/L (3.5-5.1)
[2018-11-09 05:10] LABS: HEMOGLOBIN 11.5 gm/dL (14.0-18.0); MCH 32.2 pg (26.0-34.0); MCHC 33.8 g/dL (28.0-37.0); MCV 95.2 fL (80.0-100.0); RBC 3.58 mil/uL (4.50-6.00); RDW 13.2 % (10.5-14.5)
--- NOTE | 2018-11-09 05:20 | NUR ---
PATIENT ARRIVED ON UNIT FROM THE ED AROUND 0155. NG TUBE IN PLACE HOOKED TO INTERMITTEN SUCTION. WOUND VAC TO LOWER ABDOMEN. C/O PAIN 6/10 IN LOWER ABDOMEN. PLAN OF CARE TO CONTINUE DECOMPRESSING STOMACH UNTIL SMALL BOWEL OBSTRUCTION HAS PASSED.
--- NOTE | 2018-11-09 12:03 | NUR ---
VASCULAR ACCESS CONSULTED FOR PICC PLACEMENT. PT'S LABS,MEDS,HISTORY,ORDER AND CONSENT VERIFIED. PT WAS PREPPED AND DRAPED FOR MAX BARRIER PRECAUTION. GARDENIA BASILIC WAS WIDELY PATENT WITH USG, VESSEL MEASURED 16%. 1% LIDOCAINE GIVEN SQ. 5FR DL POWER PICC TRIMMED TO 43CM INSERTED TO 2CM EXTERNAL. PICC SECURED AND STAT CXR ORDERED FOR CONFIRMATION.
--- NOTE | 2018-11-09 12:44 | NUR ---
cxr confirmed placement,picc released to [facility] per protocol
[2018-11-10 04:56] VITALS: BP 120/63
[2018-11-10 05:17] LABS: ALBUMIN 1.9 g/dL (3.4-5.0); CREATININE 1.1 mg/dL (0.7-1.3); TOTAL BILIRUBIN 0.7 mg/dL (<0.1-1.0); TOTAL PROTEIN 5.3 g/dL (6.4-8.2)
--- NOTE | 2018-11-10 05:18 | NUR ---
PT. REQUESTED TO SIT ON CHAIR; C/O LOW ABD PAIN, 3/10, ABLE TO TOLERATE IT; HAD SOME REST DURING THE NIGHT; EDUCATED ABOUT PAIN MEDICATION; PASSING GAS.
[2018-11-10 05:33] LABS: HEMATOCRIT 29.8 % (42.0-52.0); HEMOGLOBIN 9.9 gm/dL (14.0-18.0); MCH 32.3 pg (26.0-34.0); MCHC 33.2 g/dL (28.0-37.0); MCV 97.3 fL (80.0-100.0); PLATELET COUNT 203 thou/uL (150-400); RBC 3.07 mil/uL (4.50-6.00); RDW 13.2 % (10.5-14.5); WBC 6.3 thou/uL (4.0-11.0)
[2018-11-10 05:40] LABS: CALCIUM 8.2 mg/dL (8.5-10.1)
[2018-11-10 08:06] VITALS: BP 116/71
[2018-11-10 08:12] LABS: ABSOLUTE NEUTROPHILS 4.4 thou/uL (1.4-8.2)
[2018-11-10 08:47] LABS: MAGNESIUM 1.6 mg/dL (1.8-2.4); PHOSPHORUS 2.7 mg/dL (2.5-4.9)
--- NOTE | 2018-11-10 11:17 | EKG ---
[address] [address] ELECTROCARDIOGRAM REPORT Name: SANDRA KAY Room #: 214-P ADM IN M.R.#: [id number] Admission: 11/09/18 Attend Phys: Phil Dumont MD Discharge: Date of : 38 Report #: [id number] THIS REPORT FOR: //name// [facility] Test Date: 2018-11-09 Test Time: 10:52:35 Pat Name: SANDRA KAY Department: Room: 214 P Gender: M Hand Coremaker: ILDA : 1940 Requested By: Juan Marx Order Number: [id number] MD: Juan Marx Measurements Intervals [place] Rate: 89 P: CT: QRS: -39 QRSD: 97 T: 176 QT: 374 QTc: 456 Interpretive Statements Atrial fibrillation Inferior infarct, old Probable anterior infarct, age indeterminate Compared to ECG 04/24/2018 20:33:10 Poor R-wave progression no longer present Left-axis deviation no longer present Myocardial infarct finding still present Electronically Signed On 11-10-2018 11:17:23 TERRITORY SALES MANAGER MEDICAL by Juan Marx [email or web address] <ELECTRONICALLY SIGNED> By: Juan Marx MD 11/10/18 1117 1052 1052 Juan Marx MD /EPI
[2018-11-10 13:27] VITALS: BP 137/81
[2018-11-10 15:26] VITALS: BP 115/76
[2018-11-10 16:54] LABS: MAGNESIUM 2.3 mg/dL (1.8-2.4); POTASSIUM 3.6 mmol/L (3.5-5.1)
--- NOTE | 2018-11-10 20:06 | NUR ---
ASSUMED CARE OF PATIENT AT 0700. PT/VITALS STABLE. COMPLAINS OF GENERALIZED ABDOMINAL PAIN. ASSESSMENT CHARTED. PATIENT AMBULATED AROUND THE UNIT HOLDING ONTO THE IV POLE WITHOUT DIFFICULTY. NO CHEST PAIN NOTED. PLAN IS TO CONTINUE WITH ABX, DILTIAZEM AND SUPPLEMENTING POTASSIUM AND MAGNESIUM NEEDED. PATIENT DENIES ANY FLATUS BUT STATES HE IS HAVING DECREASED NAUSEA. CONTINUE WITH POC.
[2018-11-10 21:20] VITALS: BP 126/66
[2018-11-11 04:30] VITALS: BP 117/63
[2018-11-11 06:11] LABS: ALBUMIN 2.2 g/dL (3.4-5.0); CALCIUM 9.3 mg/dL (8.5-10.1); CREATININE 1.1 mg/dL (0.7-1.3); MAGNESIUM 2.2 mg/dL (1.8-2.4); PHOSPHORUS 2.3 mg/dL (2.5-4.9); POTASSIUM 3.5 mmol/L (3.5-5.1); TOTAL BILIRUBIN 0.5 mg/dL (<0.1-1.0)
--- NOTE | 2018-11-11 07:44 | NUR ---
PT TO XRAY FOR KUB
[2018-11-11 07:55] VITALS: BP 118/68
--- NOTE | 2018-11-11 07:57 | NUR ---
ASSUMED PT CARE AT 1900. VSS. PT A&0X4. ASSESSMENT AND MEDS GIVEN ARE DOCUMENTED. PT ONLY ASKED FOR PAIN MED ONCE THIS SHIFT. HE WALKED AROUND THE UNIT TWICE LAST NIGHT. NG TUBE STILL IN PLACE, NO BM YET, NO FLATUS, PT HAD GOOD URINE OUTPUT OVERNIGHT AND ABOUT 1300ML OF NGT CONTENT. TPM STARTED LAST NIGHT. RIGHT HAND IV WAS STARTED LAST NIGHT FOR ABX TREATMENT. PT APPEAERS TO BE IN GOOD SPIRITS, NO COMPLAINTS OF DISTRESS. WILL CONTINUE TO MONITOR PER POC.
--- NOTE | 2018-11-11 08:35 | NUR ---
PT BACK TO ROOM 214 - SITTING UP IN CHAIR - SUCTION ON LOW INTERMITTENT SUCTION - DENIES COMPLAINTS AT THIS TIME
[2018-11-11 11:20] VITALS: BP 107/52
[2018-11-11 14:40] VITALS: BP 104/54
--- NOTE | 2018-11-11 16:22 | NUR ---
PT REMAINS ALERT AND COOPERATIVE THROUGHOUT SHIFT - VSS - NG REMAINS TO LIS /C GASTRIC CONTENT RETURN - PAIN HAS BEEN MINIMAL TODAY - SPENT MOST OF DAY IN BEDSIDE CHAIR
--- NOTE | 2018-11-11 18:23 | NUR ---
DR. HOLLINS UPDATED ON WOUND VAC NO LONGER WORKING - ORDERS RECEIVED TO DISCONTINUE VAC
[2018-11-11 19:44] VITALS: BP 111/63
[2018-11-11 23:49] VITALS: BP 118/55
[2018-11-12 05:05] VITALS: BP 105/50
[2018-11-12 06:10] LABS: CALCIUM 8.9 mg/dL (8.5-10.1); CREATININE 0.9 mg/dL (0.7-1.3); PHOSPHORUS 1.9 mg/dL (2.5-4.9); POTASSIUM 3.4 mmol/L (3.5-5.1)
--- NOTE | 2018-11-12 06:30 | NUR ---
ASSUME CARE 1900. PT/VITALS STABLE. INTERMMITTENT CHEST PAIN NOTED. UP AITH SUPERVISION DUE TO MULPTIPLE LINES. NG TUBE NOTED. DARK BROWN/DARK GREENISH DRAINAGE NOTED. PT AFIB ON MONITOR. RATE CONTROLLED ON CARDIZEM DRIP. PT ON TPN AT 40ML/HR. VOIDING ADEQUATELY.
[2018-11-12 07:30] VITALS: BP 127/57
[2018-11-12 09:20] LABS: HEMATOCRIT 28.8 % (42.0-52.0); HEMOGLOBIN 9.7 gm/dL (14.0-18.0); MCHC 33.7 g/dL (28.0-37.0); MCV 97.9 fL (80.0-100.0); RBC 2.94 mil/uL (4.50-6.00); RDW 13.2 % (10.5-14.5); WBC 11.2 thou/uL (4.0-11.0)
--- NOTE | 2018-11-12 10:29 | NUR ---
CONTRAST ALL IN - CT UPDATED ON COMPLETION
--- NOTE | 2018-11-12 10:46 | NUR ---
PT TO CT
[2018-11-12 11:30] VITALS: BP 116/73
[2018-11-12 15:35] VITALS: BP 130/65
--- NOTE | 2018-11-12 16:37 | NUR ---
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 Recent dc from [facility] 11/07/18 with [facility]. Patient admits with SBO. He lives at home with and dtr. Plans home at dc with resumption of [facility] care.
[2018-11-12 20:35] VITALS: BP 125/73
[2018-11-13] VITALS (8 sets, daily range): BP systolic 107–130; BP diastolic 69–79
[2018-11-13 04:27] LABS: CALCIUM 8.9 mg/dL (8.5-10.1); CREATININE 0.9 mg/dL (0.7-1.3); MAGNESIUM 1.9 mg/dL (1.8-2.4); PHOSPHORUS 2.4 mg/dL (2.5-4.9); POTASSIUM 3.3 mmol/L (3.5-5.1); TOTAL BILIRUBIN 0.7 mg/dL (<0.1-1.0); TOTAL PROTEIN 5.7 g/dL (6.4-8.2)
--- NOTE | 2018-11-13 06:04 | NUR ---
ASSUMED PT CARE AT 1900. PT A/OX4, COMFORTABLE IN RECLYNER, VITAL SIGNS STABLE, ASSESSMENT CHARTED. PT CMPLAINED OF SOME PAIN IN LOWER ABDOMEN (SURGICAL SITE), PAIN WELL MANAGED WITH PAIN MEDICATION. PT COMPLAINED OF SOME REFLUX, TAMALE MACHINE FEEDER NOTIFIED, ORDERS RECIEVED. PT WAS ABLE TO USE THE BEDSIDE COMMODE, TOLERATED ACTIVITY WELL. NG DRAINING APPROPRIATED ON LOW/INT SUCTION. PT RESTED WELL THROUGH THE NIGHT. PROGRESSING TOWARD PLAN OF CARE. NO FURTHER COMPLAINTS OF REFLUX. WILL CONTINUE TO MONITOR.
--- NOTE | 2018-11-13 14:12 | NUR ---
PT LEFT FOR PREOP APPROX 1400
--- NOTE | 2018-11-13 15:34 | NUR ---
PT RETURNED APPROX 1515 FROM PRE OP WITH SURGERY RESCHEDULED FOR TOMORROW. PT DENIES ISSUES OR CONCERNS WITH POC.
--- NOTE | 2018-11-13 17:15 | NUR ---
PT CARE ASSUMED AT 0700. PT ALERT AND ORIENTED X4. DENIES PAIN AND SOA. HR BECOMES ELEVATED INTERMITTENTLY BUT REPSONDS WELL TO SCHEDULED IV BB. VS OTHERWISE STABLE. NGT TO LIS DARK BROWN DRAINAGE. IVF, IV ABT AND TPN REMAIN. PT WAS TO HAVE SURGERY THIS SHIFT BUT IT WAS RESCHEDULED FOR TOMORROW. PT AND FAMILY DENY QUESTIONS OR CONCERNS REGARDING SURGERY BEING RESCHEDULED OR POC. PT NPO WITH ICE CHIPS WILL MAKE STRICT NPO AT MIDNIGHT. ABD STAPLE LINE DRAINING COPIOUS AMOUNTS SO DR APONTE WAS NOTIFIED DURING ROUNDS THIS AFTERNOON. HE ORDERED TO REMOVE KYLE ALONG ENDURATED AREA THAT WAS SWOLLEN AND RED WHERE ALL THE DRAINAGE WAS COMING FROM. DR AWARE THAT DRAINAGE WAS BLOODY AND SLIGHLTY PURULENT. KYLE REMOVED PER ORDER AND INCISION REDRESSED. WOUND CARE CONSULTED. PT UP WITH STBA. IN CHAIR AT THIS TIME. NO DISTRESS NOTED THIS SHIFT.
[2018-11-14] VITALS (8 sets, daily range): BP systolic 97–138; BP diastolic 62–75
[2018-11-14 05:24] LABS: HEMATOCRIT 27.7 % (42.0-52.0); HEMOGLOBIN 9.5 gm/dL (14.0-18.0); MCH 32.9 pg (26.0-34.0); MCHC 34.2 g/dL (28.0-37.0); MCV 96.3 fL (80.0-100.0); RBC 2.87 mil/uL (4.50-6.00); RDW 12.6 % (10.5-14.5); WBC 12.8 thou/uL (4.0-11.0)
[2018-11-14 05:36] LABS: ALBUMIN 1.9 g/dL (3.4-5.0); CALCIUM 8.9 mg/dL (8.5-10.1); CREATININE 0.9 mg/dL (0.7-1.3); MAGNESIUM 1.9 mg/dL (1.8-2.4); PHOSPHORUS 2.2 mg/dL (2.5-4.9); POTASSIUM 3.8 mmol/L (3.5-5.1); TOTAL BILIRUBIN 0.6 mg/dL (<0.1-1.0); TOTAL PROTEIN 5.5 g/dL (6.4-8.2)
--- NOTE | 2018-11-14 06:04 | NUR ---
ASSUMED PT CARE AT 1900. A/OX4, VITAL SIGNS STABLE, ASSESSMENT CHARTED. NO COMPLAINTS OF CHEST PAIN/PAIN. PT AMBULATED AROUND UNIT, TOLERATED ACTIVITY WELL. NPO SINCE MIDNIGHT FOR LAPAROSCOPIC PROCEDURE IN AM. RESTED WELL THROPUGHT THE NIGHT. TO ACUTE CHANGES. PROGRESSING TOWARD PLAN OF CARE. WILL CONTINUE TO MONITOR.
--- NOTE | 2018-11-14 12:58 | NUR ---
PT HAD SURGERY THIS DAY. CM CALLED AND SPOKE WITH PT'S DTR DOMINIC AND SHE INDICATED THAT THEY WERE INTERESTED IN POSSIBLE POST ACUTE CARE STAY. CM DISCUSSED ACUTE REHAB AND SKILLED REHAB SETTINGS. THEY ARE RECEPTIVE TO THERAPY EVALS AND HAD MENTIONED [facility]. CM MENTIONED THAT OUR ACUTE INPATIENT REHAB WAS ASSESSING AND FAMILY IS RECEPTIVE. CM TO FOLLOW INDICATED WITH DC PLANNING.
--- NOTE | 2018-11-14 14:03 | NUR ---
WOUND CONSULT: PT. WAS SEEN TODAY BY DR. FLORES AND MYSELF. PT. IS POST OP DAY 10 FROM AN ABDOMINAL PROCEDURE. CONSULT WAS PLACED DUE TO INFECTED ABDOMINAL INCSION. PT. WAS TAKEN BACK TO THE OR AGAIN TODAY BY DR. JACINTO FOR RELASE OF ADHESIONS AND OBSTRUCTIONS. PT. DISTAL PORTION OF THE MIDLINE INCSION IS RED AND WARM BUT, THE STERI STRIPS ARE INTACK AND THE KYLE ARE WELL APPROXIMATED. RECOMMENDATIONS: AQUECEL AG TO INCSION, ABD AND TAPE, DAILY AND PRN. PT. AND STAFF NURSE WERE INSTRUCTED ON WOUND CARE.
[2018-11-15 04:59] VITALS: BP 123/77
[2018-11-15 06:03] LABS: CALCIUM 8.7 mg/dL (8.5-10.1); CREATININE 0.8 mg/dL (0.7-1.3); POTASSIUM 3.9 mmol/L (3.5-5.1)
--- NOTE | 2018-11-15 08:04 | NUR ---
ASSUME CARE 1900. PT STABLE. DENIES ANY PAIN AT THIS TIME. UP WITH STB ASSIST. ASSESMENT CHARTED. PROGRESSING WELL WITH POC. 0530, NOTED SEROUSANG DRAINAGE FROM MIDLINE INCISION SITE WHERE STERISTRIPS ARE. DRESSING WITH GAUZE/ABD/TAPE. VITALS STABLE. PT SITTING IN CHAIR. NO CHANGE IN PT STATUS. PLAN IS TO CONTINUE TO MONITOR FOR INFECTION AND BLEEDING AND GENERALIZED IMPROVEMENT. POSSIBLE DISCHARGE TO 5N WITHIN A FEW DAYS. WILL CONTINUE TO MONITOR AND FOLLOW WITH POC
[2018-11-15 08:05] VITALS: BP 107/72
[2018-11-15 09:00] VITALS: BP 107/72
[2018-11-15 11:40] VITALS: BP 107/64
--- NOTE | 2018-11-15 14:00 | EKG ---
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: : 1940 Requested By: Monico Olmstead Order Number: [id number] MD: Radu Rendon Measurements Intervals [place] Rate: 97 P: [place]: QRS: -28 QRSD: 95 T: 53 QT: 340 QTc: 432 Interpretive Statements Atrial fibrillation Multiple ventricular premature complexes Inferior infarct, old Poor R wave progression Compared to ECG 11/09/2018 10:52:35 Ventricular premature complex(es) now present Electronically Signed On 11-15-2018 14:00:41 FLOOR TECHNICIAN by Radu Rnedon [email or web address] <ELECTRONICALLY SIGNED> By: Radu Rendon MD, [facility] 11/15/18 1400 1210 1210 Radu Rendon MD, [facility] /EPI
[2018-11-15 15:20] VITALS: BP 111/71
[2018-11-15 19:40] VITALS: BP 108/63
[2018-11-16 04:01] VITALS: BP 103/55
[2018-11-16 05:23] LABS: CALCIUM 8.9 mg/dL (8.5-10.1); CREATININE 0.9 mg/dL (0.7-1.3); MAGNESIUM 1.8 mg/dL (1.8-2.4); PHOSPHORUS 2.3 mg/dL (2.5-4.9); POTASSIUM 3.8 mmol/L (3.5-5.1)
--- NOTE | 2018-11-16 07:53 | NUR ---
ASSESSMENTS CHARTED. PATIENT HAVING MULTIPLE BOWEL MOVEMENTS DURING SHIFT. CHANGED ABD DRESSING ONCE DURING SHIFT. TOOK OVER CARE AT 2330.
[2018-11-16 08:37] VITALS: BP 107/60
[2018-11-16 12:22] VITALS: BP 103/54
[2018-11-16 17:56] VITALS: BP 105/67
[2018-11-16 19:53] VITALS: BP 104/61
--- NOTE | 2018-11-17 02:32 | NUR ---
ASSESSMENTS CHARTED. PATIENT HAVING MULTIPLE LIQUID AND FORMED BOWEL MOVEMENTS WITH ALMOST CONTINUOUS OOZING OF FECAL MATTER UNTIL AROUND 0100, THEN PATIENT WAS ABLE TO FALL ASLEEP IN HIS CHAIR. TPN WAS CANCELLED TOWARD THE START OF THE SHIFT. PATIENT VERY HAPPY, SEES THIS PROGRESS. DIET [facility].
[2018-11-17 03:50] VITALS: BP 105/73
[2018-11-17 04:51] LABS: HEMATOCRIT 29.5 % (42.0-52.0); HEMOGLOBIN 9.9 gm/dL (14.0-18.0); MCH 32.1 pg (26.0-34.0); MCHC 33.4 g/dL (28.0-37.0); MCV 95.9 fL (80.0-100.0); RBC 3.07 mil/uL (4.50-6.00); RDW 12.8 % (10.5-14.5); WBC 11.2 thou/uL (4.0-11.0)
[2018-11-17 04:58] LABS: ALBUMIN 2.3 g/dL (3.4-5.0); CALCIUM 9.3 mg/dL (8.5-10.1); CREATININE 0.9 mg/dL (0.7-1.3); PHOSPHORUS 2.7 mg/dL (2.5-4.9); POTASSIUM 3.8 mmol/L (3.5-5.1)
[2018-11-17 08:00] VITALS: BP 99/71
[2018-11-17 10:44] VITALS: BP 134/75
--- NOTE | 2018-11-17 11:49 | NUR ---
Krystal BRIZUELA CONSULT RECEIVED 11/13/2018 AND RUBEN SANDERS ASSESSED PATIENT THIS DATE. SEE ORANGE PICKING SUPERVISOR'S CONSULT FOR DETAILS. SUPERVISOR RESPIRATORY MEETS WITH PATIENT THIS DATE, 11/17/18, TO DISCUSS POSSIBILITY OF AN ACUTE INPATIENT REHAB UNIT STAY. DISCUSSED RECOMMENDATIONS AND REQUIRMENTS FOR [facility] AND PROVIDED AN ORIENTATION BROCHURE. PATIENT IS AGREEABLE TO [facility] STAY. PATIENT REPORTS RESIDING AT HOME WITH SPOUSE AND DAUGHTER. STATES HE HAS 2 TO 3 STEPS TO ENTER THE HOME AND A FULL FLIGHT OF STAIRS TO THE BEDROOMS AND FULL BATHROOM. REPORTS INDEPENDENCE WITH ADL'S AND ALL FUNCTIONAL MOBILITY PRIOR TO SURGERY. VOICES HIS GOAL IS TO REGAIN HIS STRENGTH AND BALANCE IN ORDER TO RETURN HOME, CLIMB STAIRS AND FUNCTION AT HIS PREVIOUS LEVEL. WILL CONTINUE TO FOLLOW AND ASSESS. THANK YOU FOR THIS REFERRAL.
[2018-11-17 15:47] VITALS: BP 109/59
--- NOTE | 2018-11-17 19:57 | NUR ---
ASSESSMENTS COMPLETED AND DOCUMENTED. NO S/SX OF CARDIAC OR RESP DISTRESS. NO COMPLAINTS VOICED. PT CDIFF POSITIVE AND PUT INTO ISOLATION. PT ATE WELL AND HAD NO REPORTED PAIN. WILL CONTINUE TO MONITOR.
[2018-11-17 20:17] VITALS: BP 109/88
[2018-11-18 05:20] VITALS: BP 100/62
[2018-11-18 07:23] VITALS: BP 98/51
--- NOTE | 2018-11-18 07:44 | NUR ---
ASSESSMENT CHARTED. SLEEPING IN CHAIR. UP TO BEDSIDE COMMODE. WANTS ACCUCHECKS CANCELLED DUE TO TPN DONE, AND NOT NORMALLY DIABETIC.
[2018-11-18 11:33] VITALS: BP 93/59
--- NOTE | 2018-11-18 18:23 | NUR ---
ASSESSMENTS COMPLETED AND DOCUMENTED. NO S/SX OF CARDIAC OR RESP DISTRESS. PT GIVEN IV LASIX, AND IV DIG. NO COMPLAINTS VOICED. NO PAIN VOICED. WILL CONTINUE TO MONITOR.
[2018-11-18 20:03] VITALS: BP 100/56
--- NOTE | 2018-11-19 00:56 | NUR ---
ASSUMED CARE OF PT AT SHIFT CHANGE. ASSESSMENTS CHARTED. MEDS GIVEN PER JAN. PT AOX4, VSS, NO C/O PAIN. DENIES CHEST PAIN. O2 SATS REMAIN WNL ON 2 L O2. NO S/SX OF CARDIAC OR RESP DISTRESS NOTED. WILL CONTINUE TO MONITOR AND FOLLOW POC.
[2018-11-19 05:21] VITALS: BP 101/64
[2018-11-19 07:24] VITALS: BP 104/68
[2018-11-19] MEDS ORDERED: FIRVANQ50 MG/1 ML PO ×2 (09:10)
[2018-11-19] MEDS ORDERED: ACYCLOVIR 400400 MG PO ×2 (09:10)
[2018-11-19] MEDS ORDERED: ELIQUIS2.5 MG PO ×2 (09:11)
[2018-11-19] MEDS ORDERED: LANOXIN 0.250.25 M1 PO ×2 (09:11)
[2018-11-19] MEDS ORDERED: PEPCID20 MG PO ×2 (09:11)
[2018-11-19] MEDS ORDERED: KEFLEX500 M1 PO ×2 (09:12)
--- NOTE | 2018-11-19 10:44 | NUR ---
pt care assumed at 0700. pt sleeping in chair. pt assessment completed see charting. pt states he feels much better this morning, that he got a good night's rest and it has helped a lot. pt states he is no longer having diarrhea, that it is now soft stool and much less frequent. medications given per eMAR, pt states that he takes acyclovir twice a day scheduled not as needed, spoke with dr cullen and he changed the order. pt ok per physician to go upstairs, awaiting approval.
[2018-11-19 11:57] VITALS: BP 103/51
--- NOTE | 2018-11-19 13:42 | HC ---
[facility] [place] [address] [place] [address] CONSULTATION Name: SANDRA KAY Room #: 214-P ADM IN M.R.#: [id number] Admission: 11/09/18 Attend Phys: Chico Nielson Discharge: Date of : 39 Report #: [id number] THIS REPORT FOR: //name// CC: Papo Metzger CARDIOLOGY CONSULTATION HISTORY OF PRESENT ILLNESS: A 78-year-old male well known to myself. He called last night with some recurrent and severe abdominal pain. He was discharged the day prior after a bowel resection for diverticulitis, which he has had a relatively unremarkable course. He has stable coronary artery disease and we did actually see him only socially postoperative last week. He has permanent AFib, mild coronary artery disease by history. He has had a mitral valve ring repair, hypertension, hypercholesterolemia. He had cardiac catheterization in 07/2018, which had an EF of low normal, inferior apical hypokinesis. The LAD had 20-30% irregularities, calcified disease. There was a remote LAD apical intervention previously. This was widely patent. Circumflex OM had moderate disease, no occlusive disease and the dominant right was mild. There was a very limited apical infarct that preceded this last catheterization. His ejection fraction had improved to near normal. He is chronically anticoagulated. MEDICATIONS: He has been on baby aspirin, Eliquis was restarted, irbesartan, Vascepa, metoprolol 50, Multi-Deanne, potassium, simvastatin 40, torsemide 20. PAST MEDICAL HISTORY: As stated above with coronary artery disease, apical infarct with angioplasty. No stent. EF near normal. Mitral valve ring repair for severe MR, prostatectomy, DJD, hypertension, hypercholesterolemia, diverticulitis, status post bowel resection. FAMILY HISTORY: Brother and sister have had some premature coronary artery disease. SOCIAL HISTORY: He is a never smoker. 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 ALLERGIES: No known drug allergies. PHYSICAL EXAMINATION: GENERAL: He has an NG tube in place. He still has some moderate discomfort. VITAL SIGNS: Blood pressure 124/70, pulse is 70s and irregularly irregular. HEENT: Eyes reveal xanthelasmas. Pharynx is clear with an NG tube. NECK: Shows preserved upstrokes. LUNGS: Clear. CARDIOVASCULAR: Irregularly irregular, S1, S2. Faint holosystolic murmur is [facility] [address] [place] [address] CONSULTATION Name: SANDRA AKY Room #: 214-P [facility] IN M.R.#: [id number] Admission: 11/09/18 Attend Phys: Chico Nielson Discharge: Date of : 38 Report #: [id number] noted. ABDOMEN: Distended and diffusely tender. Minimal rebound. Very few bowel sounds. EXTREMITIES: Reveal no edema. Distal pulses diminished, but intact. NEUROLOGIC: Nonfocal. SKIN: Warm and dry without xanthoma or ulcer. MUSCULOSKELETAL: Generalized arthritic changes. ASSESSMENT: 1. Recurrent bowel obstruction, status post bowel resection for diverticulitis last week. 2. Permanent atrial fibrillation with fair rate control, on Cardizem drip. We will maintain. 3. Coronary artery disease with remote apical infarct and all vessels patent earlier this year. 4. Hypertension. 5. Hypercholesterolemia. 6. Degenerative joint disease. RECOMMENDATIONS AND PLAN: We will continue Cardizem drip. His NG tube is in place, so he is n.p.o. The only question is continued observation by Surgery. Lovenox if there is no surgery planned today and then we can use Lovenox on a b.i.d. basis. Kidney function has been preserved. Creatinine is down to 1.3 today. I suspect there would be 1 mg/kg subQ b.i.d. Discussed with the patient and his . We will follow with you and we will discuss with Dr. Metzger regarding anticoagulation and his plan for any recurrent surgery. I suspect we are trying to decompress and not operate. <ELECTRONICALLY SIGNED> By: Ricki Soto MD, FACC 11/19/18 1342 0935 1220 Ricki Soto MD, FACC /nt
--- NOTE | 2018-11-19 14:30 | NUR ---
per PT/OT pt is able to go home with home health, called Dr. Nielson, he said to call Dr. Cano and get his recommendation. Paged Dr. Cano, awaiting return call.
[2018-11-19 15:23] VITALS: BP 114/61
[2018-11-19 16:32] LABS: CALCIUM 9.7 mg/dL (8.5-10.1); POTASSIUM 3.7 mmol/L (3.5-5.1)
--- NOTE | 2018-11-19 17:03 | NUR ---
FOLLOWING FOR DC PLANNING. PHYSICIAN RECOMMENDS POST ACUTE CARE STAY. 5N EVAL BUT FEELS SKILLED REHAB BETTER OPTION. DISCUSSED SKILLED REHAB OPTIONS WITH PT, HIS SPOUSE AND ALSO DTR DOMINIC AND PROVIDED SKILLED LIST. THEY ARE INTERESTED IN [facility]. REACHED OUT TO [facility] IN ADMISSIONS AT [facility] AND BED AVAILABLE 11/20/18. REFERRAL FAXED TO [facility] FOR REVIEW AND FINAL DECISION WILL BE IN AM. UPDATED DR. RODRIGUEZ AND CCU RN.
[2018-11-19 20:18] VITALS: BP 104/56
[2018-11-20 04:12] VITALS: BP 101/60
--- NOTE | 2018-11-20 04:42 | NUR ---
ASSUMED PT CARE AT 1900. PT A.OX4, VITAL SIGNS STABLE, ASSESSMENT CHARTED. NO COMPLAINT OF CHEST PAIN/PAIN. ON 2L O2, ABLE TO STAND INDEPENDENTLY AND TRANSFER TO COMMODE NEEDED. PT RESTED WELL THROUGH THE NIGHT. PROGRESSING TOWARD PLAN OF CARE. WILL CONTINUE TO MONITOR.
[2018-11-20 06:00] LABS: CALCIUM 9.3 mg/dL (8.5-10.1); CREATININE 0.9 mg/dL (0.7-1.3); POTASSIUM 3.5 mmol/L (3.5-5.1)
[2018-11-20 07:20] VITALS: BP 99/63
--- NOTE | 2018-11-20 10:23 | NUR ---
[facility] CALLED TO CONFIRM ACCEPTANCE FOR DC TODAY AND W/C VAN LICENSED PHYSICAL THERAPY ASSISTANT TIME 1300. PT'S SPOUSE TO TOUR AROUND 1130 TODAY. UPDATE TO CCU RN, DR. RODRIGUEZ. RN HAS # FOR REPORT. CHART COPIED.
[2018-11-20 11:40] VITALS: BP 91/63
--- NOTE | 2018-11-20 12:58 | NUR ---
PT. DISCHARGING TODAY TO [facility] SK[facility]. FAXED DC ORDERS/SUMMARY TO FACILITY AND LEFT MSG WITH ADM LIASON THAT DC ORDERS WERE SENT. TRANSPORTATION ARRANGED FOR 1300 TODAY [facility]IA [employer] [facility]. NOTIFIED (JOVANNY) OF TIME OF TRANSPORT. UNIT NOTIFIED AND CHART COPY PER [place]. RN TO CALL REPORT TO [phone].
--- NOTE | 2018-11-20 13:20 | NUR ---
Patient accepted to [facility], orders faxed van for 1400. Family at bedside and agreeable for plan for [facility] care.
--- NOTE | 2018-11-20 15:20 | NUR ---
ASSUMED CARE OF PATIENT AT 0700. PT/VITALS STABLE. DENIES ANY PAIN. TOLERATES ACTIVITY WELL. AMBULATING HIMSELF TO THE BEDSIDE COMMODE. PROGRESSING WELL WITH POC. NO CHEST PAIN NOTED. PATIENT'S ABD CHANGED ON HIS MIDLINE INCISION WITH MINIMAL SEROSANGENOUS DRAINAGE. PATIENT'S PICC LINE REMOVED AND TIP WAS INTACE, PRESSURE HELD AND OCCLUSIVE DRESSING PLACED. TELE REMOVED. ASSISTED PATIENT DRESS IN CLOTHES AND SLIPPERS. REPORT CALLED TO [facility] AT [facility] AT 1410. PATIENT WAS TAKEN VIA WHEELCHAIR AT 1410. PATIENT STATES THAT HE FEELS BETTER THAN HE DID ON ADMISSION.
--- NOTE | 2018-11-24 07:35 | HC ---
[facility] [place] [address] [place] [address] CONSULTATION Name: SNADRA KAY Room #: 214-P [facility] IN M.R.#: [id number] Admission: 11/09/18 Attend Phys: Chico Nielson Discharge: 11/20/18 Date of : 38 Report #: [id number] THIS REPORT FOR: //name// CC: Papo Metzger DATE OF SERVICE: 11/14/2018 CHIEF COMPLAINT: Surgical incision, abdominal wall. HISTORY OF PRESENT ILLNESS: This is a 78-year-old male patient who has undergone a laparoscopic lysis of adhesions and release of the small bowel obstruction this morning. Nursing had noted some mild erythema around his incision line and asked us for a wound care opinion. The patient is having some mild abdominal discomfort, but is resting comfortably in his room. The patient is postop day #10 status post a laparoscopic sigmoidectomy. He returned to the hospital, however, with increased pain and likely a small bowel obstruction, hence undergoing the laparoscopic lysis of adhesions. PAST MEDICAL HISTORY: Positive for previous diverticulitis, partial colectomy, coronary artery disease, mitral valve ring repair, prostate cancer, status post prostatectomy, previous TIA, inguinal hernia repair, acute anterior inferior apical NV, chronic AFib, melanoma, diverticulitis. ALLERGIES: None. MEDICATIONS: Include metoprolol, acyclovir, simvastatin, torsemide, potassium, calcium citrate, glucosamine, cholecalciferol, Eliquis, Vascepa and Avapro. FAMILY HISTORY: Brother and sister have premature coronary artery disease. SOCIAL HISTORY: The patient has never been a smoker. 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 ALLERGIES: None. REVIEW OF SYSTEMS: CONSTITUTIONAL: The patient denies fever, chills or weight loss. NEUROLOGICAL: The patient denies focal weakness. ENT: The patient denies earache, nasal drainage or sore throat. CARDIOVASCULAR: The patient denies chest pain, palpitation or diaphoresis. PULMONARY: The patient denies cough or shortness of breath. GASTROINTESTINAL: The patient does complain of mild abdominal discomfort. He notes a little bit of tenderness around his incision line. [facility] [address] [place] [address] CONSULTATION Name: SANDRA KAY Room #: 214-P [facility] IN M.R.#: [id number] Admission: 11/09/18 Attend Phys: Chico Nielson Discharge: 11/20/18 Date of : 38 Report #: [id number] Others systems in a 14-point review of systems are negative. PHYSICAL EXAMINATION: VITAL SIGNS: At this time include pulse 87, respiratory rate 14, blood pressure 109/74, temperature 97.4. GENERAL: This is a chronically ill-appearing male patient who appears to be in minimal distress. HEENT: Head normocephalic. Nose and throat are clear. NECK: Supple. LUNGS: Clear. ABDOMEN: Slightly distended. Midline incision line is noted. Laparoscopy ports are also noted with fresh glue. There are fred in the midline incision with a few Steri-Strips. There is mild erythema. There is no drainage. There is minimal tenderness here. There are no open wounds or ulcerations noted at this time. NEUROLOGIC: The patient is alert and oriented and appropriate. LABORATORY DATA: Includes sodium 143, potassium 3.8, chloride 108, CO2 of 28, BUN 15, creatinine 0.9, glucose of 99. White blood cell count 12.8 with a hemoglobin of 9.5. CLINICAL IMPRESSION: 1. Surgical incision, abdominal wall, now status post lysis of adhesions for small bowel obstruction. 2. Permanent atrial fibrillation. 3. Coronary artery disease. 4. Hypertension. RECOMMENDATIONS: At this point in time, I have discussed the findings and case with Dr. Olmstead, the surgeon who saw him today. At this point in time, there are no open wounds or ulcerations. Dr. Olmstead is well aware of the patient's underlying conditions having operated on him today. At this point, I do not see that there is any acute need for wound care recommendations. All of the incisions at this point are closed and intact and would recommend continuation of care per Dr. Olmstead. At this point, we will sign off and be available should there be any issues that develop. I appreciate being asked to see him in this consultation. <ELECTRONICALLY SIGNED> By: Leander Pollack MD 11/24/18 0735 1416 0636 Leander Pollack MD /nt
--- NOTE | 2018-12-02 10:07 | NUR ---
Received call from Doreen with [facility] ([phone]) requesting discharge disposition. CLARA reviewed chart. Pt was discharged to [facility] on 11/20. CLARA returned call to Doreen to provide update. No additional SW needs identified. Case closed.
--- NOTE | 2018-12-04 11:23 | HC ---
[facility] [address] [place] [address] CONSULTATION Name: SANDRA KAY Room #: 214-P [facility] IN M.R.#: [id number] Admission: 11/09/18 Attend Phys: Chico Nielson Discharge: 11/20/18 Date of : 38 Report #: [id number] THIS REPORT FOR: //name// CC: Papo Metzger DATE OF SERVICE: 11/14/2018 HISTORY OF PRESENT ILLNESS: The patient is a 78-year-old white male with history of diverticulitis, prior inguinal hernia repair, had lower abdominal pain, and small-bowel obstruction. He underwent a recent resection for recurrent distal small-bowel obstruction for diverticulitis. Postoperatively, he has had some problems with a possible small-bowel obstruction and dilated proximal small bowel loops. He had an NG tube placed, was n.p.o. He now went back for surgery earlier today with laparoscopic lysis of adhesions with release of small-bowel obstruction on 11/14/2018. I am seeing him in rehabilitation medicine consultation. 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 MEDICATIONS: Please see the full medication listing. ALLERGIES: No known drug allergies. SOCIAL HISTORY: Lives in a house with his , daughter, 2-story, bedroom is upstairs. He has a La-Z-Boy chair on the ground floor, if he wants to sleep on the ground floor. Did not utilize gait aids. HABITS: Former smoker, quit greater than a year ago. REVIEW OF SYSTEMS: The patient was seen earlier this morning prior to today's surgery. He did not offer any current complaints of chest pain, shortness of breath, or abdominal discomfort. PHYSICAL EXAMINATION: GENERAL: A 78-year-old white male in no obvious distress. VITAL SIGNS: Last recorded temperature was 98.2, pulse 94, respirations 18, blood pressure 110/70. NEUROLOGIC: He was alert, pleasant, and appears to be a good historian. Facies were symmetric. Functional range of motion of both upper extremities. Strength is grade 4-/5. DTRs are trace to 1. Lower extremities, no focal calf swelling, [facility] [address] [place] [address] CONSULTATION Name: SANRDA KAY Room #: 214-P [facility] IN M.R.#: [id number] Admission: 11/09/18 Attend Phys: Chico Nielson Discharge: 11/20/18 Date of : 38 Report #: [id number] functional range of motions strength grade 4/5. DTRs are trace to 1. I did not ambulate him at this time, although nurse's notes indicate that he had been doing some ambulation around the unit. ASSESSMENT: A 78-year-old white male with the following problems: 1. Generalized weakness and debilitation. 2. Small-bowel obstruction, status post laparoscopic lysis of adhesions with release of small-bowel obstruction on 11/14/2018. 3. Previous recurrent distal small-bowel obstruction, status post resection for diverticulitis. 4. Coronary artery disease, status post myocardial infarction with mitral valve replacement. 5. Chronic atrial fibrillation. 6. Prostate cancer, status post prostatectomy. 7. 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 8. Hypernatremia with electrolyte abnormalities. PLAN: The patient underwent a second surgical procedure today. Therapy orders are entered to work with him, as he further medically stabilizes. We will need to see what his functional level is and will be glad to assist regarding rehab therapy needs. <ELECTRONICALLY SIGNED> By: Sam Cano MD 12/04/18 [id number] Sam Cano MD /nt
--- NOTE | 2018-12-16 15:20 | O ---
[facility] [place] [address] [place] [address] OPERATIVE REPORT Name: SANDRA KYA Room #: 214-P [facility] IN M.R.#: [id number] Admission: 11/09/18 Attend Phys: Chico Nielson Discharge: 11/20/18 Date of : 38 Report #: [id number] THIS REPORT FOR: //name// CC: Papo Metzger DATE OF SERVICE: 11/14/2018 PREOPERATIVE DIAGNOSIS: Small-bowel obstruction. POSTOPERATIVE DIAGNOSES: 1. Small-bowel obstruction. 2. Adhesions. PROCEDURE PERFORMED: Laparoscopic lysis of adhesions with release of a small-bowel obstruction. SURGEON: Monico Olmstead M.D. SKI MAKER: Smith Barnes DO ANESTHESIA: General endotracheal anesthesia. ESTIMATED BLOOD LOSS: Minimal (less than 5 mL). COMPLICATIONS: None appreciated. SPECIMENS: None. INDICATIONS: The patient is a 78-year-old male who presented 11 days ago for elective sigmoid colectomy for chronic sigmoid diverticulitis. The patient did well postoperatively and discharged home. Unfortunately, returned to be admitted due to nausea, vomiting with findings of a small-bowel obstruction. As such, indication was for laparoscopic evaluation with intraoperative findings of adhesions of distal loop of small bowel plastered to the posterior aspect of the lower midline wound necessitating lysis of adhesions with release of small-bowel obstruction. DESCRIPTION OF PROCEDURE: After explaining the risks, benefits and alternatives of the procedure with the patient in detail in the preoperative holding area and obtaining consent, the patient was brought to the Operating Room and placed supine on the operating room table. After conducting a thorough timeout procedure, verifying correct patient and procedure, the patient was given general endotracheal anesthesia. Once adequate anesthesia was obtained, his [address] [place] [address] OPERATIVE REPORT Name: SANDRA KAY Room #: 214-P [facility] IN M.R.#: [id number] Admission: 11/09/18 Attend Phys: Chico Nielson Discharge: 11/20/18 Date of : 38 Report #: [id number] SCDs were hooked up to pneumatic compression device and he was given a preoperative dose of antibiotics in line with the SCIP protocol. The patient's abdomen was now prepped and draped in standard surgical sterile fashion. 5 mL of 0.5% Marcaine with epinephrine were used to anesthetize the skin in the left upper quadrant and his prior incision site. A #15-bladed scalpel was used to create a small skin henok at this location. A 5-mm Visiport was placed over 0-degree 5-mm laparoscope and introduced through this incision site. Once intra-abdominal placement was verified visually, the obturator, the trocar and laparoscope were both removed and the abdomen was insufflated to 8 mmHg using carbon dioxide gas. The laparoscope was changed to a 5-mm 30-degree laparoscope, which was reintroduced through this trocar. The entire abdomen was evaluated to ensure no injury upon entry. We immediately identified a loop of distal ileum plastered to the posterior aspect of the anterior abdominal wall at his lower midline incision site. I now placed two additional 5 mm working trocars, one in the left lower quadrant and one in the right mid abdomen at its prior incision site under direct vision after anesthetizing the skin at each location with 5 mL of 0.5% Marcaine with epinephrine and I created small skin henok is at each location with a #15-bladed scalpel. The patient was now placed in Trendelenburg position with right side gently elevated and I proceeded to take down adhesions in the lower pelvis using combination of Harmonic scalpel and EndoShears. Any time we were near bowel, cold dissection with EndoShears was undertaken to prevent injury from thermal spread. Once I had taken all of these adhesions down, I released the kinked segment of distal ileum, which allowed it to fall into the pelvis and the dilated proximal small bowel had fluid and air immediately traverse into the distal small bowel and into the cecum, thereby relieving the small-bowel obstruction. We now proceeded to run the small bowel in a [id number] fashion from the terminal ileum proximally and saw no further evidence of pathology. Inspection of the stapled anastomosis in the lower pelvis showed no evidence of pathology whatsoever. This completed the procedure. The abdomen was fully desufflated. All remaining trocars were removed under direct vision. A 4-0 Monocryl was used in a standard subcuticular fashion for all skin incisions and Dermabond glue was applied to all skin wounds. At the end of the procedure, all instrument, needle and sponge counts were correct. The patient tolerated the procedure without incident, was awakened in the Operating Room, transitioned to the Recovery Room in stable condition with no apparent complications. <ELECTRONICALLY SIGNED> By: Monico Olmstead MD, FACS 12/16/18 1520 [id number] Monico Olmstead MD, FACS /nt
== END 2018-11-20 14:03 | DRG 853 ==
LOC: ER 20:53 → EROBS 11-09 00:10 → 2N 11-09 00:10
PROVIDERS: Emergency Medicine; Hospitalist; Internal Medicine Cardiovascular Disease; Nurse Practitioner Adult Health; Nurse Practitioner Family; Surgery; ADMIT Hospitalist
DX: A41.9 Sepsis, unspecified organism (principal); N17.0 Acute kidney failure with tubular necrosis; K56.609 Unspecified intestinal obstruction, unspecified as to partial versus complete obstruction; E87.0 Hyperosmolality and hypernatremia; G45.9 Transient cerebral ischemic attack, unspecified; B02.39 Other herpes zoster eye disease; K57.92 Diverticulitis of intestine, part unspecified, without perforation or abscess without bleeding; E44.0 Moderate protein-calorie malnutrition; I50.30 Unspecified diastolic (congestive) heart failure; S36.62XA Contusion of rectum, initial encounter; A04.72 Enterocolitis due to Clostridium difficile, not specified as recurrent; I25.10 Atherosclerotic heart disease of native coronary artery without angina pectoris; I48.2 Chronic atrial fibrillation; I11.0 Hypertensive heart disease with heart failure; E78.00 Pure hypercholesterolemia, unspecified; M19.90 Unspecified osteoarthritis, unspecified site; K57.10 Diverticulosis of small intestine without perforation or abscess without bleeding; K40.90 Unilateral inguinal hernia, without obstruction or gangrene, not specified as recurrent; E87.6 Hypokalemia; D64.9 Anemia, unspecified; X58.XXXA Exposure to other specified factors, initial encounter; Y93.89 Activity, other specified; Y92.89 Other specified places as the place of occurrence of the external cause; Y99.8 Other external cause status; Z85.46 Personal history of malignant neoplasm of prostate; Z82.49 Family history of ischemic heart disease and other diseases of the circulatory system; I25.2 Old myocardial infarction; Z90.49 Acquired absence of other specified parts of digestive tract; Z87.891 Personal history of nicotine dependence; Z68.33 Body mass index [BMI] 33.0-33.9, adult
CPT/HCPCS: 10081; 27000; 50010; 50101; 50249; 50386; 50555; 50900; 50962; 51489; 52265; 52287; 53307; 54118; 56462; 56526; 57092; 62110; 62900; 70005

== ENCOUNTER → 2019-08-17 | Outpatient (CLI) | payer OTHER ==
[~2019-08-17] MED LIST changes: +ELIQUIS2.5 MG PO; +FIRVANQ50 MG/1 ML PO; +KEFLEX500 M1 PO; +LANOXIN 0.250.25 M1 PO; +PEPCID20 MG PO
== END ==
LOC: MRI 14:21
DX: G45.9 Transient cerebral ischemic attack, unspecified (principal); I67.82 Cerebral ischemia

== ENCOUNTER → 2020-07-19 | Outpatient (CLI) | payer OTHER | LOC: SJCVCIMAG 07:50 | PROVIDERS: ATTEND Internal Medicine Cardiovascular Disease | DX: I08.3 Combined rheumatic disorders of mitral, aortic and tricuspid valves (principal); I27.20 Pulmonary hypertension, unspecified; I11.9 Hypertensive heart disease without heart failure; I48.91 Unspecified atrial fibrillation; I49.3 Ventricular premature depolarization; I25.10 Atherosclerotic heart disease of native coronary artery without angina pectoris; I42.9 Cardiomyopathy, unspecified; E78.5 Hyperlipidemia, unspecified; E78.00 Pure hypercholesterolemia, unspecified; I65.29 Occlusion and stenosis of unspecified carotid artery; D68.59 Other primary thrombophilia; I25.2 Old myocardial infarction; Z79.899 Other long term (current) drug therapy ==

== ENCOUNTER → 2021-02-22 | Outpatient (CLI) | payer OTHER | LOC: SJCVC 11:19 | PROVIDERS: ATTEND Internal Medicine Cardiovascular Disease | DX: R94.31 Abnormal electrocardiogram [ECG] [EKG] (principal); I49.3 Ventricular premature depolarization; I44.4 Left anterior fascicular block; I25.10 Atherosclerotic heart disease of native coronary artery without angina pectoris; I10 Essential (primary) hypertension; E78.00 Pure hypercholesterolemia, unspecified; I87.2 Venous insufficiency (chronic) (peripheral); I05.9 Rheumatic mitral valve disease, unspecified; D68.59 Other primary thrombophilia; I48.91 Unspecified atrial fibrillation; G43.909 Migraine, unspecified, not intractable, without status migrainosus; I25.2 Old myocardial infarction; Z98.890 Other specified postprocedural states; Z95.2 Presence of prosthetic heart valve; Z79.899 Other long term (current) drug therapy; Z86.73 Personal history of transient ischemic attack (TIA), and cerebral infarction without residual deficits; Z82.49 Family history of ischemic heart disease and other diseases of the circulatory system ==

== ENCOUNTER → 2021-06-20 | Outpatient (CLI) | payer OTHER | LOC: SJCVC 11:01 | PROVIDERS: ATTEND Internal Medicine Cardiovascular Disease | DX: R94.31 Abnormal electrocardiogram [ECG] [EKG] (principal); I44.4 Left anterior fascicular block; I49.3 Ventricular premature depolarization; I48.21 Permanent atrial fibrillation; I10 Essential (primary) hypertension; E78.00 Pure hypercholesterolemia, unspecified; I65.29 Occlusion and stenosis of unspecified carotid artery; I05.9 Rheumatic mitral valve disease, unspecified; I87.2 Venous insufficiency (chronic) (peripheral); I25.10 Atherosclerotic heart disease of native coronary artery without angina pectoris; Z98.890 Other specified postprocedural states; Z98.61 Coronary angioplasty status; Z95.2 Presence of prosthetic heart valve; Z79.899 Other long term (current) drug therapy; Z86.73 Personal history of transient ischemic attack (TIA), and cerebral infarction without residual deficits; Z82.49 Family history of ischemic heart disease and other diseases of the circulatory system ==

== ENCOUNTER → 2021-09-13 | Outpatient (CLI) | payer OTHER | LOC: MRI 10:24 | PROVIDERS: ATTEND Neuromusculoskeletal Medicine & OMM | DX: I67.82 Cerebral ischemia (principal); R42 Dizziness and giddiness ==